=== PATIENT | male | born 1945 | race Caucasian/White ===

== ENCOUNTER 2016-06-13 16:36 | Emergency (ER) | payer MEDICARE, BC ==
--- NOTE | 2016-06-13 17:43 | ERPHSYRPT ---
- History of Present Illness Source: patient, family () Patient Subjective Stated Complaint: LEFT HIP PAIN FOR TWO MONTHS Triage Nursing Assessment: PRESENTED AT BACK DOOR. PATIENT ASSISTED TO W/C AND THEN TO COT. HOLDING LEFT HIP. SKIN WARM, MOIST. COLOR NORMAL. RESP SLIGHTLY LABORED. 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 He has pain in left flank and left lower abd for a few days , worse today. He had a fall but does not think related. He has hx of kidney stones. No fever or chills. Started O2 at home this week thru Dr Salazar. Pain was severe. He was advised by pain management he can not take any pain medication due to his pump. The pump is scheduled for refill next week. (LEIGH GLOVER) Allergies/Adverse Reactions: baclofen Allergy (Verified 06/13/16 16:47) Penicillins Allergy (Verified 06/13/16 16:47) tizanidine [From Zanaflex] Allergy (Verified 06/13/16 16:47) Home Medications: Allopurinol 300 mg [Zyloprim 300 mg] 300 mg PO DAILY 02/20/16 [History] Aspirin 81 mg PO DAILY 02/20/16 [History] Carvedilol 6.25 mg [Coreg 6.25 MG] 6.25 mg PO BID 02/20/16 [History] Celecoxib [Celebrex] 200 mg PO DAILY 02/20/16 [History] Diazepam 2 mg PO UD 02/20/16 [History] Ergocalciferol (Vitamin D2) [Vitamin D] 50,000 unit PO UD 02/20/16 [History] Gabapentin 1,200 mg PO EVENING MEAL 02/20/16 [History] Gabapentin 800 mg PO HS 02/20/16 [History] Hydrochlorothiazide 25 mg [hydroDIURIL 25 MG] 25 mg PO DAILY 02/20/16 [ History] Hydromorphone HCl 30 mg/30 ml* [Dilaudid 1 mg/1Ml FABRIC COATING SUPERVISOR] 30 mg IJ UD 02/20/16 [ History] Lisinopril 20 mg [Zestril 20 MG] 20 mg PO BID 02/20/16 [History] Potassium Chloride 10 Meq Tab* [Klor Con 10 MEQ] 10 meq PO DAILY 02/20/16 [ History] Potassium Citrate [Urocit-K] 10 meq PO BID 02/20/16 [History] Prednisone 10 mg [Deltasone 10 mg] 10 mg PO DAILY 02/20/16 [History] Risedronate Sodium [Actonel] 150 mg PO UD 02/20/16 [History] Sumatriptan Succinate [Imitrex] 100 mg PO UD 04/13/16 [History] Umeclidinium Brm/Vilanterol Tr [Anoro Ellipta 62.5-25 Mcg INH] 1 each UD [History] - Review of Systems Constitutional: Malaise, Weakness, No Fever, No Chills Eyes: No Symptoms Ears, Nose, & Throat: No Symptoms Respiratory: Dyspnea (chronic), No Cough Cardiac: No Chest Pain Abdominal/Gastrointestinal: Abdominal Pain (left), No Vomiting, No Diarrhea Genitourinary Symptoms: Hematuria (chronic), Flank Pain (left), No Dysuria Skin: No Rash Neurological: No Headache Psychological: Anxiety All Other Systems: Reviewed and Negative <LEIGH GLOVER - Last Filed: 06/13/16 19:19> - Past Medical History Pertinent Past Medical History: Yes Neurological History: Migraines, Peripheral Neuropathy ENT History: No Pertinent History Cardiac History: Hypertension Respiratory History: No Pertinent History, COPD Endocrine Medical History: No Pertinent History Musculoskeletal History: Osteoporosis GI Medical History: No Pertinent History History: No Pertinent History Psycho-Social History: Depression Male Reproductive Disorders: Prostate Problems Other Medical History: GOUT. KIDNEY STONE. 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 enlarged prostate. soledad myopathy - Past Surgical History Past Surgical History: Yes Neuro Surgical History: No Pertinent History Cardiac: No Pertinent History Respiratory: No Pertinent History Gastrointestinal: Hernia Repair Genitourinary: No Pertinent History Musculoskeletal: Orthopedic Surgery Male Surgical History: No Pertinent History Other Surgical History: PAIN PUMP. IMPLANTED TENS UNIT--THEN PAIN PUMP. BACK SURGERY. prostate surgery. skin CA benign - Social History Smoking Status: Former smoker Exposure to second hand smoke: No Drug Use: none Patient Lives Alone: No <LEIGH GLOVER - Last Filed: 06/13/16 19:19> - Physical Exam General Appearance: alert, other (arrived at back door banging on door. Was somewhat breathless on his walker. Anxiety improved in bed.) Eye Exam: PERRL/EOMI Ears, Nose, Throat Exam: moist mucous membranes Neck Exam: normal inspection, non-tender, supple Respiratory Exam: lungs clear Cardiovascular Exam: regular rate/rhythm Gastrointestinal/Abdomen Exam: soft, tenderness (left sided), No hernia Male Genitalia Exam: normal genitalia Back Exam: normal inspection, No CVA tenderness, No vertebral tenderness Extremity Exam: normal inspection, normal range of motion Neurologic Exam: alert, oriented x 3, cooperative, sensation nml, No motor deficits Skin Exam: warm, dry, No rash SpO2 Interpretation: normal SpO2: 93 Oxygen Delivery: Room Air <LEIGH GLOVER - Last Filed: 06/13/16 19:19> - Course Nursing assessment & vital signs reviewed: Yes <LEIGH GLOVER - Last Filed: 06/13/16 19:19> <LEIGH GLOVER - Last Filed: 06/13/16 19:19> - Progress Progress: improved Counseled pt/family regarding: lab results, diagnosis, need for follow-up, rad results <HUONG COURTNEY - Last Filed: 06/13/16 20:01> - Progress Progress Note: 06/13/16 18:47 CT abd/pelvis: velma 6:46 PM 06/13/2016: Additional B/L renal calculi, largest L 9mm. 06/13/16 19:13 velma 6:45 PM 06/13/2016: Compared to CT abd only 11/28/11. 3mm R mid ureteral calculus @L3 level w/ minimal hydronephrosis. Suspect 3cm R urinary bladder wall calcified mass worrisome for malignancy. New scattered small mesenteric nodes & numerous prominent retroperoteneal nodes possibly metastatic. Stable B/L renal cysts & fatty liver. velma 6:46 PM 06/13/2016: Additional B/L renal calculi, largest L 9mm. 06/13/16 19:[address] finding with pt. He used to see dr Brewer for bladder and stones but not for quite some time. Discussed possibility of bladder malignancy needing follow up. Report to Dr Courtney for further care and disposition. UA pending. (LEIGH GLOVER) 06/13/16 19:54 Patient is pain free, CT results d/w patient. Patient stats he will follow up with Dr Goodwin in 2 -3 days (HUONG COURTNEY) <LEIGH GLOVER - Last Filed: 06/13/16 19:19> - Departure Time of Disposition: 19:55 Departure Disposition: Home Critical Care Time: Yes Critical Care Time(excluding separately billable procedures): 30-74 minutes <HUONG COURTNEY - Last Filed: 06/13/16 20:01> - Departure Clinical Impression: Renal colic, bilateral, Bladder calcified Condition: Stable Referrals: DOMINIQUE GOODWIN MD [Primary Care Provider] - Followup in 3 days w/ PCP Additional Instructions: Please follow the instructions given to you. Please take your medication as prescribed if given. If symptoms recur or get worse, come back to the emergency room if you cannot reach your primary care physician, or call your primary care physician for an appointment. Again if your symptoms get worse, come back to the emergency room. Thanks for visiting emergency room, and let us take care of you.
[2016-06-13 17:48] LABS: Mean Cell Volume 102.2 fl (78-100); Mean Corpuscular Hemoglobin 33.3 pg (26-32); Mean Platelet Volume 10.2 fl (6-9.5); Platelet Count 152 K/mm3 (150-450); Red Blood Count 3.69 M/mm3 (4.1-5.6); Red Cell Distribution Width 14.5 % (11.5-14.0)
[2016-06-13 18:11] LABS: ALBUMIN 3.8 g/dL (3.4-5.0); ALKALINE PHOSPHATASE 50 U/L (46-116); ANION GAP 9.8 MEQ/L (5-15); BILIRUBIN,TOTAL 0.5 mg/dL (0.2-1.0); BLOOD UREA NITROGEN 23 mg/dL (9-20); CHLORIDE 109 mEq/L (98-107); Carbon Dioxide 31.9 mEq/L (21-32); Glucose 78 MG/DL (70-110); Potassium 4.5 mEq/L (3.5-5.1); SGOT/AST 21 U/L (15-37); SGPT/ALT 23 U/L (12-78); SODIUM 146 mEq/L (136-145); Total Protein 6.2 gm/dL (6.4-8.2)
[2016-06-13 18:48] LABS: ANISOCYTOSIS 1+; Total Cells Counted 100
[2016-06-13 18:49] LABS: Platelet Estimate NORMAL (NORMAL)
[2016-06-13 19:35] VITALS: BP 120/76; PULSE 48; O2SAT 98
[2016-06-13 19:48] LABS: Bacteria RARE /HPF (NEGATIVE); COMPLETE URINE MICROSCOPIC? YES; Collection Type CCMS; Mucus MODERATE /HPF (NEGATIVE); Ph 6.5 (5-6); WBC 25-50 /HPF (0-5)
--- NOTE | 2016-06-13 20:05 | XRAY ---
Indication: Left flank pain. Multiple contiguous axial images obtained through the abdomen and pelvis without contrast using renal stone protocol. Comparison: CT abdomen study of November 28, 2011 Lung bases again demonstrates bibasilar atelectasis/scarring and right base bleb. Heart is not enlarged. Left anterior abdominal wall pain pump and bilateral L3-L4 posterior spinal hardware produces beam artifact. There is again spinal leads terminating in the lower thoracic spine. New 3 mm calculus in the right mid ureter, approximately L3 level with minimal hydronephrosis. Additional new 9 mm nonobstructing left renal calculus and 2 punctate right renal micro-calculi. Again there are multiple bilateral renal cysts. Right urinary bladder wall demonstrates 3 cm focus of calcifications concerning for bladder mass. There is now numerous scattered small mesenteric nodes, largest right mid abdomen measuring 1.2 x 1.9 cm. There also numerous retroperitoneal abdominal and pelvic enlarged lymph nodes, largest in the right pelvis proximal to the inguinal canal measuring 1.6 x 3.1 cm. Findings worrisome for primary versus metastatic malignancy. Stable fatty liver and scattered calcified splenic granulomas. Noncontrasted stomach and bowel loops appear nonobstructed. Normal appendix. No free fluid/air. Remaining gallbladder, pancreas, and adrenal glands appear unremarkable for noncontrast exam. Minimal aortoiliac calcifications without AAA. Again tortuous/ectatic bilateral iliac arteries. Osseous structures again demonstrates degenerative changes throughout the spine and lower lumbar fusion surgery with laminectomy. Again old right lower rib fractures. Impression: 1. New 3 mm right mid ureteral calculus producing minimal partial obstruction. Additional bilateral renal micro-calculi. 2. Suspect right urinary bladder wall mass worrisome for malignancy. 3. New scattered mesenteric and abdominal/pelvic retroperitoneal lymphadenopathy, primary versus metastatic malignancy. 4. Stable bilateral renal cysts, fatty liver, and post surgical changes. CTDI 23.69
== END 2016-06-13 20:32 | disposition home or self-care (01) ==
LOC: ED 16:36
DX: N23 Unspecified renal colic (principal); N32.89 Other specified disorders of bladder; M25.552 Pain in left hip; R10.9 Unspecified abdominal pain; R10.32 Left lower quadrant pain; Z79.891 Long term (current) use of opiate analgesic; Z79.899 Other long term (current) drug therapy
CPT/HCPCS: 36000; 36415; 74176; 80053; 81000; 85025; 93005; 99283

== ENCOUNTER 2017-02-24 11:11 | Inpatient (IN) | payer MEDICARE, BC ==
--- NOTE | 2017-02-24 11:57 | ERPHSYRPT ---
- History of Present Illness Time Seen by Provider: 02/24/17 11:48 Source: patient Exam Limitations: no limitations Patient Subjective Stated Complaint: spouse states pt fever started at 0600 this morning. states he was seen by urologist yesterday is given a script for bactrim which the pt has not yet started. states pt not feeling well today. states he has had a cold and a cough for the past few days. states fever at home before tylenol was 102.0 Triage Nursing Assessment: pt pink, warm, diaphotetic. pt normally uses home o2. lung sounds clear and equal. Physician History: The patient is a 71-year-old male brought in by family complaining of fever of 102.3 this morning, confusion, tiredness, and sweating profusely. The patient has bladder tumors and was seen by his urologist yesterday. It was determined he had a UTI yesterday and was given Bactrim for treatment. His went to cotton picker operator the Bactrim this morning and when she returned, she found him again sweaty and confused. He has not had any Bactrim since the diagnosis yesterday. The patient states that he was not confused. He denies pain out of the ordinary. His past medical history is significant for desmin myopathy, kidney stones, asthma, chronic lymphocytic leukemia, and hypertension. Timing/Duration: today Fever Severity: moderate Fever Therapy STONE SETTER METAL OPTICAL FRAMES: none Associated Symptoms: denies symptoms Allergies/Adverse Reactions: baclofen Allergy (Verified 02/24/17 11:28) cyclobenzaprine [From Flexeril] Allergy (Verified 02/24/17 11:28) Penicillins Allergy (Verified 02/24/17 11:28) tizanidine [From Zanaflex] Allergy (Verified 02/24/17 11:28) Home Medications: Allopurinol 300 mg [Zyloprim 300 mg] 300 mg PO DAILY 02/20/16 [History] Aspirin 81 mg PO DAILY 02/20/16 [History] Celecoxib [Celebrex] 200 mg PO DAILY 02/20/16 [History] Diazepam 2 mg PO UD 02/20/16 [History] Ergocalciferol (Vitamin D2) [Vitamin D] 50,000 unit PO UD 02/20/16 [History] Gabapentin 1,200 mg PO EVENING MEAL 02/20/16 [History] Gabapentin 800 mg PO HS 02/20/16 [History] Hydrochlorothiazide 25 mg [hydroDIURIL 25 MG] 25 mg PO DAILY 02/20/16 [ History] Hydromorphone HCl 30 mg/30 ml* [Dilaudid 1 mg/1Ml WEB ENGINEER] 30 mg IJ UD 02/20/16 [ History] Lisinopril 20 mg [Zestril 20 MG] 20 mg PO HS 02/20/16 [History] Potassium Chloride 10 Meq Tab* [Klor Con 10 MEQ] 10 meq PO DAILY 02/20/16 [ History] Potassium Citrate [Urocit-K] 10 meq PO BID 02/20/16 [History] Prednisone 10 mg [Deltasone 10 mg] 10 mg PO DAILY 02/20/16 [History] Risedronate Sodium [Actonel] 150 mg PO UD 02/20/16 [History] Sumatriptan Succinate [Imitrex] 100 mg PO UD 04/13/16 [History] Hx Tetanus, Diphtheria Vaccination/Date Given: Yes (up to date) Hx Influenza Vaccination/Date Given: Yes Hx Pneumococcal Vaccination/Date Given: Yes Immunizations Up to Date: Yes - Review of Systems Constitutional: Fever, Weakness Eyes: No Symptoms Ears, Nose, & Throat: No Symptoms Respiratory: Dyspnea (pts is on 2 L NC for asthma) Cardiac: Edema, No Chest Pain, No Syncope Abdominal/Gastrointestinal: No Abdominal Pain, No Nausea, No Vomiting, No Diarrhea Genitourinary Symptoms: Urgency, No Dysuria Musculoskeletal: Myalgias (from Desmin myopathy) Skin: No Rash Neurological: No Dizziness, No Focal Weakness, No Sensory Changes Psychological: No Symptoms Endocrine: No Symptoms Hematologic/Lymphatic: No Symptoms Immunological/Allergic: No Symptoms All Other Systems: Reviewed and Negative - Past Medical History Pertinent Past Medical History: Yes Neurological History: Migraines, Peripheral Neuropathy ENT History: No Pertinent History Cardiac History: Hypertension Respiratory History: No Pertinent History, COPD Endocrine Medical History: No Pertinent History Musculoskeletal History: Osteoporosis GI Medical History: No Pertinent History History: No Pertinent History Psycho-Social History: Depression Male Reproductive Disorders: Prostate Problems Other Medical History: GOUT. KIDNEY STONE. 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 enlarged prostate. soledad myopathy - Past Surgical History Past Surgical History: Yes Neuro Surgical History: No Pertinent History Cardiac: No Pertinent History Respiratory: No Pertinent History Gastrointestinal: Hernia Repair Genitourinary: No Pertinent History Musculoskeletal: Orthopedic Surgery Male Surgical History: No Pertinent History Other Surgical History: PAIN PUMP. IMPLANTED TENS UNIT--THEN PAIN PUMP. BACK SURGERY. prostate surgery. skin CA benign - Social History Smoking Status: Former smoker Exposure to second hand smoke: No Drug Use: none Patient Lives Alone: No - Nursing Vital Signs Nursing Vital Signs: Initial Vital Signs Temperature 98.3 F 02/24/17 11:42 Pulse Rate 61 02/24/17 11:42 Respiratory Rate 20 02/24/17 11:42 Blood Pressure 106/59 02/24/17 11:42 O2 Sat by Pulse Oximetry 95 02/24/17 11:42 Pain Scale Pain Intensity 0 - Physical Exam General Appearance: mild distress Eye Exam: PERRL/EOMI ENT Exam: normal ENT inspection, No pharyngeal erythema, No tonsillar exudate Neck Exam: supple, full range of motion, No meningismus Respiratory Exam: wheezing Cardiovascular/Chest Exam: normal heart sounds, regular rate/rhythm, No murmur, No edema Gastrointestinal/Abdominal Exam: soft, non tender, no distention Rectal Exam: not done Extremity Exam: pedal edema Neurologic Exam: alert, oriented x 3, cooperative, protection manager II-XII nml as tested, normal mood/affect, sensation nml, No motor deficits Skin Exam: normal color, warm, dry, No rash SpO2 Interpretation: O2 applied SpO2: 95 Oxygen Delivery: Nasal Cannula - Radiology Exams Chest X-ray Interpretation: Other (right hemidiaphragm elevation and adjacent infiltrate/atelectasis unchanged comp to 02/20/[address] Calixto.) Abdomen X-ray Interpretation: Teleradiologist Report, Other (Neg KUB with left renal calculus per Dr Davies) Ordered Tests: Active Orders 24 hr Category Date Time Status IV Insertion STAT Care 02/24/17 12:15 Active Oxygen-ED Only NASAL CANNULA 2 lpm Care 02/24/17 13:18 Active CHEST 2 VIEWS (PA AND LAT) Stat Exams 02/24/17 12:16 Completed KUB Stat Exams 02/24/17 12:16 Completed BLOOD CULTURE Stat Lab 02/24/17 13:00 Received CBC W DIFF Stat Lab 02/24/17 11:45 Completed CMP Stat Lab 02/24/17 11:45 Completed CULTURE,URINE Stat Lab 02/24/17 11:45 Received Lactic Acid Stat Lab 02/24/17 12:30 Results Manual Differential NC Stat Lab 02/24/17 11:45 Completed NT PRO BNP Stat Lab 02/24/17 11:45 Completed UA W/ MICROSCOPIC Stat Lab 02/24/17 11:45 Completed Medication Summary Generic Name Dose Route Start Last Admin Trade Name Frannie PRN Reason Stop Dose Admin Ceftriaxone Sodium/Dextrose 1 g in 50 mls @ 100 mls/hr 02/24/17 13:56 Rocephin 1 Gm-D5w 50 Ml Bag IV 02/24/17 14:25 STAT STA Lab/Rad Data: Laboratory Result Diagrams 02/24/17 11:45 02/24/17 11:45 Laboratory Results 02/24/17 02/24/17 02/24/17 Range/Units 12:30 11:45 11:45 WBC (4.0-10.5) K/mm3 RBC (4.1-5.6) M/mm3 Hgb (12.5-18.0) gm/dl Hct (42-50) % MCV (78-100) fl MCH (26-32) pg MCHC (32-36) g/dl RDW (11.5-14.0) % Plt Count (150-450) K/mm3 MPV (6-9.5) fl Segmented Neutrophils (36.-66.) % Band Neutrophils (0.0-2.0) % Lymphocytes (Manual) (24-44) % Monocytes (Manual) (0.0-12.0) % Basophils (Manual) (0.0-1.0) % Nucleated RBCs % Differential Comment Atypical Lymphocytes % Platelet Estimate (NORMAL) Smear Path Review Sodium (136-145) mEq/L Potassium (3.5-5.1) mEq/L Chloride (98-107) mEq/L Carbon Dioxide (21-32) mEq/L Anion Gap (5-15) MEQ/L BUN (9-20) mg/dL Creatinine (0.55-1.30) mg/dl Estimated GFR ML/MIN Glucose (70-110) MG/DL Lactic Acid 3.4 H (0.4-2.0) Calcium (8.5-10.1) mg/dL Total Bilirubin (0.2-1.0) mg/dL AST (15-37) U/L ALT (12-78) U/L Alkaline Phosphatase (46-116) U/L NT-Pro-B Natriuret Pep 2039 H (0-125) pg/ml Serum Total Protein (6.4-8.2) gm/dL Albumin (3.4-5.0) g/dL Ur Collection Type VOID Urine Color YELLOW (YELLOW) Urine Appearance CLOUDY (CLEAR) Urine pH 5.0 (5-6) Ur Specific [place] 1.020 (1.005-1.025) Urine Protein TRACE (Negative) Urine Ketones NEGATIVE (NEGATIVE) Urine Blood 250 (0-5) Thomas/ul Urine Nitrite POSITIVE (NEGATIVE) Urine Bilirubin NEGATIVE (NEGATIVE) Urine Urobilinogen NORMAL (0-1) mg/dL Ur Leukocyte Esterase 2+ (NEGATIVE) Urine Microscopic RBC 0-2 (0-2) /HPF Urine Microscopic WBC >100 (0-5) /HPF Ur Epithelial Cells FEW (FEW) /HPF Urine Bacteria MANY (NEGATIVE) /HPF Urine Glucose NEGATIVE (NEGATIVE) mg/dL Specimen Received 02/24/17 1150 02/24/17 02/24/17 Range/Units 11:45 11:45 WBC 46.5 H* (4.0-10.5) K/mm3 RBC 3.77 L (4.1-5.6) M/mm3 Hgb 12.4 L (12.5-18.0) gm/dl Hct 40.3 L (42-50) % MCV 106.9 H (78-100) fl MCH 32.8 H (26-32) pg MCHC 30.8 L (32-36) g/dl RDW 16.0 H (11.5-14.0) % Plt Count 113 L (150-450) K/mm3 MPV 9.8 H (6-9.5) fl Segmented Neutrophils 18 L (36.-66.) % Band Neutrophils 1 (0.0-2.0) % Lymphocytes (Manual) 77 H (24-44) % Monocytes (Manual) 2 (0.0-12.0) % Basophils (Manual) 1 (0.0-1.0) % Nucleated RBCs 1 % Differential Comment NORMAL Atypical Lymphocytes 1 % Platelet Estimate DECREASED (NORMAL) Smear Path Review Cancelled Sodium 147 H (136-145) mEq/L Potassium 4.2 (3.5-5.1) mEq/L Chloride 108 H (98-107) mEq/L Carbon Dioxide 29.4 (21-32) mEq/L Anion Gap 13.9 (5-15) MEQ/L BUN 26 H (9-20) mg/dL Creatinine 1.28 (0.55-1.30) mg/dl Estimated GFR 59 ML/MIN Glucose 110 (70-110) MG/DL Lactic Acid (0.4-2.0) Calcium 9.0 (8.5-10.1) mg/dL Total Bilirubin 0.90 (0.2-1.0) mg/dL AST 29 (15-37) U/L ALT 27 (12-78) U/L Alkaline Phosphatase 58 (46-116) U/L NT-Pro-B Natriuret Pep (0-125) pg/ml Serum Total Protein 5.9 L (6.4-8.2) gm/dL Albumin 3.8 (3.4-5.0) g/dL Ur Collection Type Urine Color (YELLOW) Urine Appearance (CLEAR) Urine pH (5-6) Ur Specific [place] (1.005-1.025) Urine Protein (Negative) Urine Ketones (NEGATIVE) Urine Blood (0-5) Thomas/ul Urine Nitrite (NEGATIVE) Urine Bilirubin (NEGATIVE) Urine Urobilinogen (0-1) mg/dL Ur Leukocyte Esterase (NEGATIVE) Urine Microscopic RBC (0-2) /HPF Urine Microscopic WBC (0-5) /HPF Ur Epithelial Cells (FEW) /HPF Urine Bacteria (NEGATIVE) /HPF Urine Glucose (NEGATIVE) mg/dL Specimen Received - Progress Progress: unchanged Discussed with : María Will see patient in: hospital (full admit) Counseled pt/family regarding: lab results, diagnosis, rad results - Departure Time of Disposition: 14:04 Departure Disposition: In-patient Admission Clinical Impression: Sepsis, UTI (urinary tract infection) Condition: Stable Critical Care Time: No Referrals: DOMINIQUE TORRES MD [Primary Care Provider] - Additional Instructions: You have a UTI with a fever. You were given Rocephin 1 g by IV in the ER. You' re being admitted per Dr. Kaplan for treatment.
[2017-02-24 12:27] LABS: Mean Cell Volume 106.9 fl (78-100); Mean Platelet Volume 9.8 fl (6-9.5); Platelet Count 113 K/mm3 (150-450); Red Blood Count 3.77 M/mm3 (4.1-5.6)
[2017-02-24 12:30] LABS: ADD URINE CULTURE? YES (NO); Bilirubin NEGATIVE (NEGATIVE); Blood 250 Ery/ul (0-5); COMPLETE URINE MICROSCOPIC? YES; Collection Type VOID; Glucose NEGATIVE (NEGATIVE); Leukocyte Esterase 2+ (NEGATIVE)
[2017-02-24 12:31] LABS: Lactic Acid 3.4 (0.4-2.0)
[2017-02-24 12:35] LABS: ALBUMIN 3.8 g/dL (3.4-5.0); ANION GAP 13.9 MEQ/L (5-15); BILIRUBIN,TOTAL 0.9 mg/dL (0.2-1.0); Carbon Dioxide 29.4 mEq/L (21-32); Potassium 4.2 mEq/L (3.5-5.1); Total Protein 5.9 gm/dL (6.4-8.2)
[2017-02-24 12:38] LABS: Mean Corpuscular Hemoglobin 32.8 pg (26-32); White Blood Count 46.5 K/mm3 (4.0-10.5)
--- NOTE | 2017-02-24 12:59 | XRAY ---
Indication: Fever, dizziness, and UTI. Comparison: February 20, 2016. AP/lateral chest unchanged again demonstrating right hemidiaphragm elevation with adjacent infiltrate/atelectasis. Left lung clear. Heart is borderline enlarged. Bony thorax intact again with osteopenia, degenerative changes, and lower thoracic spinal stimulator leads.
--- NOTE | 2017-02-24 13:03 | XRAY ---
Indication: Fever, dizziness, and UTI. Comparison: None KUB demonstrates nonspecific nonobstructed bowel gas pattern with left mid renal subcentimeter calculus. No free air. Remaining solid organs unremarkable. Osseous structures intact with lumbar degenerative changes, L4-L5 fusion surgery, and disconnected spinal stimulator leads terminating at the T10 level. Also left abdomen pain pump. Impression: Left renal calculus similar in appearance to CT abdomen/pelvis study July 17, 2016. Remaining KUB is negative with incidental findings.
[2017-02-24 13:17] LABS: ATYPICAL LYMPHS 1 %; BAND 1 % (0.0-2.0); Basophil 1 % (0.0-1.0); Nucleated Red Blood Cell 1 %; Platelet Estimate DECREASED (NORMAL); Total Cells Counted 100
[2017-02-24 13:51] LABS: Bacteria MANY /HPF (NEGATIVE); Epithelial Cells FEW /HPF (FEW); WBC >100 /HPF (0-5)
[2017-02-24] MEDS ORDERED: ROCEPHIN 1 Gm-D5w 50 ml Bag** 1 G/50 ML IVPB IV STA (13:56)
[2017-02-24] MEDS ORDERED: Sodium Chloride 0.9% 1000 ML 2,000 ML ONE (14:05)
[2017-02-24] MEDS ORDERED: ROCEPHIN 1 Gm-D5w 50 ml Bag** 1 G/50 ML IVPB IV ONE (14:05)
[2017-02-24] MEDS ORDERED: Zofran 4 MG/2 ML VIAL IV PRN (15:10)
[2017-02-24] MEDS: TYLENOL 325 MG PO PRN (15:43)
[2017-02-24] MEDS: Sodium Chloride 0.9% 1000 ML 1,000 ML IV SCH (15:44)
[2017-02-24] MEDS ORDERED: NON-FORMULARY ITEM (Sumatriptan Succinate [Imitrex] 100 MG) PO SCH (16:45)
[2017-02-24] MEDS ORDERED: MEDICATION INTERVENTION MC PRN (16:58)
[2017-02-24] MEDS ORDERED: GABAPENTIN 1200 MG PO SCH (18:00)
[2017-02-24] MEDS: Neurontin 400 MG PO SCH ×2 (18:48→22:09)
[2017-02-24] MEDS: Valium 5 MG PO SCH (18:48)
[2017-02-24] MEDS ORDERED: NON-FORMULARY ITEM (Gabapentin [Gabapentin] 800 MG) PO SCH (22:00)
[2017-02-24] MEDS ORDERED: POTASSIUM CITRATE 10 MEQ PO SCH (22:00)
[2017-02-24] MEDS: Zestril 20 MG PO SCH (22:09)
[2017-02-25] MEDS: Sodium Chloride 0.9% 1000 ML 1,000 ML IV SCH ×3 (01:58→22:28)
[2017-02-25 05:58] LABS: Mean Cell Volume 107.6 fl (78-100); Mean Platelet Volume 9.5 fl (6-9.5); Platelet Count 76 K/mm3 (150-450); Red Blood Count 3.15 M/mm3 (4.1-5.6); White Blood Count 20.1 K/mm3 (4.0-10.5)
[2017-02-25 06:08] LABS: ANION GAP 7.3 MEQ/L (5-15); BLOOD UREA NITROGEN 27 mg/dL (9-20); CHLORIDE 111 mEq/L (98-107); Carbon Dioxide 31.6 mEq/L (21-32); Glucose 92 MG/DL (70-110); Potassium 3.4 mEq/L (3.5-5.1); SODIUM 147 mEq/L (136-145)
[2017-02-25 08:03] LABS: BAND 6 % (0.0-2.0); Eosinophil 1 % (0.00-3.0); Nucleated Red Blood Cell 1 %; Platelet Estimate DECREASED (NORMAL); Total Cells Counted 100
--- NOTE | 2017-02-25 08:41 | PCM.HP ---
History of Present Illness - Chief Complaint Chief Complaint: uti History of Present Illness: is a 71 year old male who was admitted yesterday, he developed fever, chills and confusion. He apparently was seen by Dr Sosa and diagnosed with UTI but hadn't started the script for antibiotic before becoming very ill. He has known bladder tumors and abdominal adenopathy and is seeing hem/onc. 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 - Review of Systems Constitutional: Fever, Chills Respiratory: No Cough, No Short Of Breath Cardiac: No Chest Pain, No Edema, No Syncope Abdominal/Gastrointestinal: No Abdominal Pain, No Nausea, No Vomiting, No Diarrhea Genitourinary Symptoms: Frequency, Hesitancy Skin: No Rash All Other Systems: Reviewed and Negative Medications & Allergies Home Medications: Home Medication List Allopurinol 300 mg [Zyloprim 300 mg] 300 mg PO DAILY 02/20/16 [History Confirmed 02/24/17] Aspirin 81 mg PO DAILY 02/20/16 [History Confirmed 02/24/17] Celecoxib [Celebrex] 200 mg PO DAILY 02/20/16 [History Confirmed 02/24/17] Ergocalciferol (Vitamin D2) [Vitamin D] 50,000 unit PO UD 02/20/16 [History Confirmed 02/24/17] Gabapentin 1,200 mg PO EVENING MEAL 02/20/16 [History Confirmed 02/24/17] Gabapentin 800 mg PO HS 02/20/16 [History Confirmed 02/24/17] Hydrochlorothiazide 25 mg [hydroDIURIL 25 MG] 25 mg PO DAILY 02/20/16 [ History Confirmed 02/24/17] Hydromorphone HCl 30 mg/30 ml* [Dilaudid 1 mg/1Ml TECHNOLOGY SALES REPRESENTATIVE] 30 mg IJ UD 02/20/16 [ History Confirmed 02/24/17] Lisinopril 20 mg [Zestril 20 MG] 20 mg PO HS 02/20/16 [History Confirmed 06/13/16] Potassium Chloride 10 Meq Tab* [Klor Con 10 MEQ] 10 meq PO DAILY 02/20/16 [ History Confirmed 02/24/17] Potassium Citrate [Urocit-K] 10 meq PO BID 02/20/16 [History Confirmed 02/24/17] Prednisone 10 mg [Deltasone 10 mg] 10 mg PO DAILY 02/20/16 [History Confirmed 02/24/17] Risedronate Sodium [Actonel] 150 mg PO UD 02/20/16 [History Confirmed 02/24/17] Sumatriptan Succinate [Imitrex] 100 mg PO UD 04/13/16 [History Confirmed ] Desvenlafaxine Succinate [Pristiq ER] 50 mg PO DAILY 02/24/17 [History Confirmed 02/24/17] Diazepam 5 mg [Valium 5 MG] 2.5 mg PO 18 02/24/17 [History Confirmed 02/24] Allergies/Adverse Reactions: Allergies Allergy/AdvReac Type Severity Reaction Status Date / Time baclofen Allergy Verified 02/24/17 11:28 cyclobenzaprine Allergy Verified 02/24/17 11:28 [From Flexeril] Penicillins Allergy Verified 02/24/17 11:28 tizanidine [From Zanaflex] Allergy Verified 02/24/17 11:28 - Past Medical History Past Medical History: Yes Neurological History: Migraines, Peripheral Neuropathy ENT History: No Pertinent History Cardiac History: Hypertension Respiratory History: No Pertinent History, COPD Endocrine Medical History: No Pertinent History Musculoskelatal History: Osteoporosis GI Medical History: No Pertinent History History: No Pertinent History Pyscho-Social History: Depression Male Reproductive Disorders: Prostate Problems Comment: GOUT. KIDNEY STONE. 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 enlarged prostate. soledad myopathy - Past Surgical History Past Surgical History: Yes Neuro Surgical History: No Pertinent History Cardiac History: No Pertinent History Respiratory Surgery: No Pertinent History GI Surgical History: Hernia Repair Genitourinary Surgical Hx: No Pertinent History Musculskeletal Surgical Hx: Orthopedic Surgery Male Surgical History: No Pertinent History Other Surgical History: PAIN PUMP. IMPLANTED TENS UNIT--THEN PAIN PUMP. BACK SURGERY. prostate surgery. skin CA benign - Social History Smoking Status: Never smoker Exposure to second hand smoke: No Alcohol: None Drug Use: none - Physical Exam Vital Signs: Vital Signs - 24 hr Temp Pulse Resp BP Pulse Ox 02/25/17 07:17 97.7 F 56 L 22 119/60 96 02/25/17 07:08 94 L 02/25/17 04:30 98.1 F 45 L 20 104/60 95 02/25/17 00:00 97.7 F 50 L 18 127/67 96 02/24/17 20:00 97.9 F 52 L 20 110/58 94 L 02/24/17 16:44 52 L 16 94 L 02/24/17 15:40 98.3 F 56 L 114/59 95 02/24/17 15:10 98.3 F 56 L 114/59 02/24/17 14:40 98.3 F 60 105/61 95 02/24/17 14:33 98.2 F 56 L 18 114/59 93 L 02/24/17 14:15 68 22 105/61 02/24/17 14:12 95 02/24/17 13:40 60 18 105/61 94 L 02/24/17 12:50 58 L 16 93/49 94 L 02/24/17 12:24 62 18 79/48 95 02/24/17 11:42 98.3 F 61 20 106/59 95 Oxygen-Last 24 hours O2 Percentage 2 Liters = 28% O2 Percentage 2 Liters = 28% O2 Percentage 2 Liters = 28% O2 Percentage 2 Liters = 28% O2 Percentage 2 Liters = 28% O2 Percentage 2 Liters = 28% O2 Percentage 2 Liters = 28% O2 Percentage 2 Liters = 28% O2 Percentage 2 Liters = 28% O2 Percentage 2 Liters = 28% General Appearance: no apparent distress, alert Neurologic Exam: alert, oriented x 3, cooperative Respiratory Exam: normal breath sounds, lungs clear, No respiratory distress Cardiovascular Exam: regular rate/rhythm, normal heart sounds, normal peripheral pulses Gastrointestinal/Abdomen Exam: soft, normal bowel sounds, No tenderness, No mass Skin Exam: normal color, warm, dry, No rash Results - Labs Lab/Micro Results: Accuchecks Date 02/24/17 Time 22:00 Accucheck Value: 146 Lab Results-Last 24 Hours 02/24/17 02/25/17 02/25/17 Range/Units 15:10 05:12 05:12 WBC 20.1 H (4.0-10.5) K/mm3 RBC 3.15 L (4.1-5.6) M/mm3 Hgb 10.4 L (12.5-18.0) gm/dl Hct 33.9 L (42-50) % MCV 107.6 H (78-100) fl MCH 33.0 H (26-32) pg MCHC 30.7 L (32-36) g/dl RDW 16.0 H (11.5-14.0) % Plt Count 76 L (150-450) K/mm3 MPV 9.5 (6-9.5) fl Segmented Neutrophils 18 L (36.-66.) % Band Neutrophils 6 H (0.0-2.0) % Lymphocytes (Manual) 71 H (24-44) % Monocytes (Manual) 4 (0.0-12.0) % Eosinophils (Manual) 1 (0.00-3.0) % Nucleated RBCs 1 % Differential Comment NORMAL Platelet Estimate DECREASED (NORMAL) Sodium 147 H (136-145) mEq/L Potassium 3.4 L (3.5-5.1) mEq/L Chloride 111 H (98-107) mEq/L Carbon Dioxide 31.6 (21-32) mEq/L Anion Gap 7.3 (5-15) MEQ/L BUN 27 H (9-20) mg/dL Creatinine 0.82 (0.55-1.30) mg/dl Estimated GFR > 60 ML/MIN Glucose 92 (70-110) MG/DL Lactic Acid 1.6 (0.4-2.0) Calcium 8.3 L (8.5-10.1) mg/dL Accuchecks Date 02/24/17 Time 22:00 Accucheck Value: 146 Assessment/Plan (1) Sepsis Current Visit: Yes Status: Acute (2) UTI (urinary tract infection) Current Visit: Yes Status: Acute Code(s): N39.0 - URINARY TRACT INFECTION, SITE NOT SPECIFIED (3) Desmin myopathy Current Visit: No Status: Acute Code(s): G72.89 - OTHER SPECIFIED MYOPATHIES
[2017-02-25] MEDS ORDERED: NON-FORMULARY ITEM (Celecoxib [Celebrex] 200 MG) PO SCH (10:00)
[2017-02-25] MEDS ORDERED: NON-FORMULARY ITEM (Aspirin [Aspirin] 81 MG) PO SCH (10:00)
[2017-02-25] MEDS: PRISTIQ ER PO SCH (10:20)
[2017-02-25] MEDS: DELTASONE 10 MG PO SCH (10:21)
[2017-02-25] MEDS: Klor Con 10 MEQ PO SCH (10:21)
[2017-02-25] MEDS: celeBREX 100 MG PO SCH (10:21)
[2017-02-25] MEDS: ECOTRIN 81 MG PO SCH (10:21)
[2017-02-25] MEDS: ZYLOPRIM 300 MG PO SCH (10:22)
[2017-02-25] MEDS: ENOXAPARIN SODIUM SQ SCH (10:22)
[2017-02-25] MEDS: ROCEPHIN 1 Gm-D5w 50 ml Bag** 1 G/50 ML IVPB IV SCH (10:23)
[2017-02-25] MEDS: TYLENOL 325 MG PO PRN (10:38)
[2017-02-25] MEDS: Neurontin 400 MG PO SCH ×2 (17:15→21:41)
[2017-02-25] MEDS: Valium 5 MG PO SCH (17:16)
[2017-02-25] MEDS: Zestril 20 MG PO SCH (21:41)
[2017-02-25] MEDS ORDERED: Valium 5 MG PO SCH (22:00)
[2017-02-26 05:48] LABS: Mean Cell Volume 108.3 fl (78-100); Mean Corpuscular Hemoglobin 33.5 pg (26-32); Platelet Count 77 K/mm3 (150-450); Red Blood Count 3.13 M/mm3 (4.1-5.6); Red Cell Distribution Width 15.7 % (11.5-14.0); White Blood Count 19.3 K/mm3 (4.0-10.5)
[2017-02-26 06:20] LABS: ALBUMIN 2.9 g/dL (3.4-5.0); ALKALINE PHOSPHATASE 40 U/L (46-116); ANION GAP 6.9 MEQ/L (5-15); BLOOD UREA NITROGEN 22 mg/dL (9-20); CHLORIDE 110 mEq/L (98-107); Carbon Dioxide 32.8 mEq/L (21-32); Glucose 88 MG/DL (70-110); SGOT/AST 20 U/L (15-37); SGPT/ALT 24 U/L (12-78); SODIUM 146 mEq/L (136-145); Total Protein 5.2 gm/dL (6.4-8.2)
[2017-02-26 07:09] LABS: Eosinophil 2 % (0.00-3.0); Total Cells Counted 100
[2017-02-26 07:12] LABS: Macrocytosis 1+; Platelet Estimate DECREASED (NORMAL)
--- NOTE | 2017-02-26 07:55 | PCM.NOTE ---
Date and Time: 02/26/17 0753 Subjective Assessment: patient reports he is feeling better. he is able to ambulate to the restroom with his walker, tolerating po intake and feels back to his baseline as far as strength and functional status. he feels ready to go home Objective Exam General Appearance: no apparent distress Neurologic Exam: alert, oriented x 3 Skin Exam: normal color, warm, dry Cardiovascular Exam: regular rate/rhythm, normal heart sounds Gastrointestinal/Abdomen Exam: soft, No tenderness, No mass Extremity Exam: normal inspection, normal range of motion OBJECTIVE DATA Vital Signs: Vital Signs - 24 hr Temp Pulse Resp BP Pulse Ox 02/26/17 07:27 97.6 F 52 L 18 162/70 97 02/26/17 06:40 94 L 02/26/17 04:00 97.7 F 78 16 136/64 96 02/25/17 23:32 97.9 F 54 L 18 122/61 98 02/25/17 20:00 97.6 F 51 L 20 119/57 97 02/25/17 19:11 95 02/25/17 16:04 97.8 F 56 L 20 133/72 96 02/25/17 12:56 98 F 55 L 20 127/57 97 Oxygen-Last 24 hours O2 Percentage 2 Liters = 28% O2 Percentage 2 Liters = 28% O2 Percentage 2 Liters = 28% O2 Percentage 2 Liters = 28% Pain Assessment - Last Documented Pain Intensity 0 Pain Scale Used 0-10 Pain Scale Intake and Output: Intake & Output 02/23/17 02/24/17 02/25/17 02/26/17 11:59 11:59 11:59 11:59 Intake Total 3870 3780 Balance 3870 3780 Weight 107.955 kg 114.078 kg Lab Results: Accuchecks Date 02/26/17 Accucheck Value: 92 Lab Results-Last 24 Hours 02/25/17 02/26/17 02/26/17 Range/Units 05:12 05:20 05:20 WBC 19.3 H (4.0-10.5) K/mm3 RBC 3.13 L (4.1-5.6) M/mm3 Hgb 10.5 L (12.5-18.0) gm/dl Hct 33.9 L (42-50) % MCV 108.3 H (78-100) fl MCH 33.5 H (26-32) pg MCHC 31.0 L (32-36) g/dl RDW 15.7 H (11.5-14.0) % Plt Count 77 L (150-450) K/mm3 Segmented Neutrophils 18 L 19 L (36.-66.) % Band Neutrophils 6 H (0.0-2.0) % Lymphocytes (Manual) 71 H 73 H (24-44) % Monocytes (Manual) 4 6 (0.0-12.0) % Eosinophils (Manual) 1 2 (0.00-3.0) % Nucleated RBCs 1 % Differential Comment NORMAL ABNORMAL Platelet Estimate DECREASED DECREASED (NORMAL) Macrocytosis 1+ Sodium 146 H (136-145) mEq/L Potassium 4.0 (3.5-5.1) mEq/L Chloride 110 H (98-107) mEq/L Carbon Dioxide 32.8 H (21-32) mEq/L Anion Gap 6.9 (5-15) MEQ/L BUN 22 H (9-20) mg/dL Creatinine 0.79 (0.55-1.30) mg/dl Estimated GFR > 60 ML/MIN Glucose 88 (70-110) MG/DL Calcium 8.3 L (8.5-10.1) mg/dL Total Bilirubin 0.30 (0.2-1.0) mg/dL AST 20 (15-37) U/L ALT 24 (12-78) U/L Alkaline Phosphatase 40 L (46-116) U/L Serum Total Protein 5.2 L (6.4-8.2) gm/dL Albumin 2.9 L (3.4-5.0) g/dL Multi-Disciplinary Progress Notes: Multi-Disciplinary Progress Notes 02/26/17 07:19 Pharmacy Note by Gurpreet Robles Patient has low platelets of 77. Please review if Lovenox therapy still needed. Initialized on 02/26/17 07:19 - END OF NOTE 02/25/17 19:13 Respiratory Note by Jordyn Luciano NURSE CALLED TO LET ME KNOW THE PT WEARS CPAP AT NIGHT. I TALKED WITH THE PT ABOUT WEARING CPAP TONIGHT. HE REFUSES THE CPAP DUE TO NOT WANTING TO BE BILLED FOR IT. PT STATES IF HES HERE ANY NIGHT HE'LL HAVE FAMILY BRING HIS IN. PT WILL CALL IF HE CHANGES HIS MIND. Initialized on 02/25/17 19:13 - END OF NOTE Assessment/Plan (1) Sepsis Current Visit: Yes Status: Acute (2) UTI (urinary tract infection) Current Visit: Yes Status: Acute Assessment & Plan: will d/c home on oral abx when urine culture results return Code(s): N39.0 - URINARY TRACT INFECTION, SITE NOT SPECIFIED (3) Desmin myopathy Current Visit: No Status: Resolved Code(s): G72.89 - OTHER SPECIFIED MYOPATHIES
[2017-02-26] MEDS: Sodium Chloride 0.9% 1000 ML 1,000 ML IV SCH (08:21)
[2017-02-26] MEDS: celeBREX 100 MG PO SCH (08:23)
[2017-02-26] MEDS: Klor Con 10 MEQ PO SCH (08:23)
[2017-02-26] MEDS: ZYLOPRIM 300 MG PO SCH (08:23)
[2017-02-26] MEDS: PRISTIQ ER PO SCH (08:24)
[2017-02-26] MEDS: DELTASONE 10 MG PO SCH (08:24)
[2017-02-26] MEDS: ECOTRIN 81 MG PO SCH (08:24)
[2017-02-26] MEDS: ENOXAPARIN SODIUM SQ SCH (08:24)
[2017-02-26] MEDS: ROCEPHIN 1 Gm-D5w 50 ml Bag** 1 G/50 ML IVPB IV SCH (08:25)
--- NOTE | 2017-02-26 11:09 | PCM.DS ---
Discharge Summary Date of Admission: 02/24/17 14:27 Admitting Physician: MAXIMINO STEVE Consults: Consults on Case 02/24/17 15:24 Tele-Health Consult ROUTINE 02/24/17 16:29 Tele-Health Consult Primary Care Provider: DOMINIQUE TORRES RICCO Allergies Allergies baclofen Allergy (Verified 02/24/17 11:28) cyclobenzaprine [From Flexeril] Allergy (Verified 02/24/17 11:28) Penicillins Allergy (Verified 02/24/17 11:28) tizanidine [From Zanaflex] Allergy (Verified 02/24/17 11:28) Hospital Summary - Hospital Course Hospital Course: patient was admitted with weakness, fever, high white blood cell count. 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 he was found to have UTI, has improved. white blood cell count has improved and he has been afebrile - Vitals & Intake/Output Vital Signs: Vital Signs Temperature 97.6 F 02/26/17 07:27 Pulse Rate 52 L 02/26/17 07:27 Respiratory Rate 18 02/26/17 07:27 Blood Pressure 162/70 02/26/17 07:27 O2 Sat by Pulse Oximetry 97 02/26/17 07:27 Oxygen-Last Documented O2 Percentage 2 Liters = 28% Intake & Output: Intake & Output 02/23/17 02/24/17 02/25/17 02/26/17 11:59 11:59 11:59 11:59 Intake Total 3870 4020 Balance 3870 4020 Weight 107.955 kg 114.078 kg - Lab Result Diagrams: 02/26/17 05:20 02/26/17 05:20 Lab Results-Last 24 Hrs: Accuchecks Date 02/26/17 Lab Results-Last 24 Hours 02/26/17 02/26/17 Range/Units 05:20 05:20 WBC 19.3 H (4.0-10.5) K/mm3 RBC 3.13 L (4.1-5.6) M/mm3 Hgb 10.5 L (12.5-18.0) gm/dl Hct 33.9 L (42-50) % MCV 108.3 H (78-100) fl MCH 33.5 H (26-32) pg MCHC 31.0 L (32-36) g/dl RDW 15.7 H (11.5-14.0) % Plt Count 77 L (150-450) K/mm3 Segmented Neutrophils 19 L (36.-66.) % Lymphocytes (Manual) 73 H (24-44) % Monocytes (Manual) 6 (0.0-12.0) % Eosinophils (Manual) 2 (0.00-3.0) % Differential Comment ABNORMAL Platelet Estimate DECREASED (NORMAL) Macrocytosis 1+ Sodium 146 H (136-145) mEq/L Potassium 4.0 (3.5-5.1) mEq/L Chloride 110 H (98-107) mEq/L Carbon Dioxide 32.8 H (21-32) mEq/L Anion Gap 6.9 (5-15) MEQ/L BUN 22 H (9-20) mg/dL Creatinine 0.79 (0.55-1.30) mg/dl Estimated GFR > 60 ML/MIN Glucose 88 (70-110) MG/DL Calcium 8.3 L (8.5-10.1) mg/dL Total Bilirubin 0.30 (0.2-1.0) mg/dL AST 20 (15-37) U/L ALT 24 (12-78) U/L Alkaline Phosphatase 40 L (46-116) U/L Serum Total Protein 5.2 L (6.4-8.2) gm/dL Albumin 2.9 L (3.4-5.0) g/dL Micro Results-Entire Visit: Accuchecks Date 02/26/17 Discharge Exam General Appearance: no apparent distress, alert Neurologic Exam: alert, oriented x 3, cooperative, normal mood/affect, nml cerebellar function, sensation nml, No motor deficits Skin Exam: normal color, warm, dry Respiratory Exam: normal breath sounds, lungs clear, No respiratory distress Cardiovascular Exam: regular rate/rhythm, normal heart sounds Gastrointestinal/Abdomen Exam: soft, No tenderness, No mass Final Diagnosis/Problem List - Final Discharge Diagnosis/Problem (1) Sepsis Current Visit: Yes Status: Acute (2) UTI (urinary tract infection) Current Visit: Yes Status: Acute Assessment & Plan: urine culture reviewed, home on cipro (3) Desmin myopathy Current Visit: No Status: Resolved - Discharge Disposition: Home, Self-Care Condition: Stable Prescriptions: New Ciprofloxacin [Cipro 500 MG] 500 mg PO BID #14 tablet Continue Risedronate Sodium [Actonel] 150 mg PO UD Ergocalciferol (Vitamin D2) [Vitamin D] 50,000 unit PO UD Prednisone 10 mg [Deltasone 10 mg] 10 mg PO DAILY Potassium Citrate [Urocit-K] 10 meq PO BID Gabapentin 800 mg PO HS Gabapentin 1,200 mg PO EVENING MEAL Celecoxib [Celebrex] 200 mg PO DAILY Aspirin 81 mg PO DAILY Potassium Chloride 10 Meq Tab* [Klor Con 10 MEQ] 10 meq PO DAILY Lisinopril 20 mg [Zestril 20 MG] 20 mg PO HS Hydrochlorothiazide 25 mg [hydroDIURIL 25 MG] 25 mg PO DAILY Allopurinol 300 mg [Zyloprim 300 mg] 300 mg PO DAILY Hydromorphone HCl 30 mg/30 ml* [Dilaudid 1 mg/1Ml PULLEY MAN] 30 mg IJ UD Sumatriptan Succinate [Imitrex] 100 mg PO UD Desvenlafaxine Succinate [Pristiq ER] 50 mg PO DAILY Diazepam 5 mg [Valium 5 MG] 2.5 mg PO 18 Follow up with: DOMINIQUE TORRES MD [Primary Care Provider] - Forms: Patient Portal Information
[2017-02-26 11:30] VITALS: BP 141/72; PULSE 49; O2SAT 93
== END 2017-02-26 13:30 | disposition home or self-care (01) | DRG 872 ==
LOC: ED 11:11 → MED SURG 14:27
PROVIDERS: ADMIT Family Medicine; ATTEND Family Medicine
DX: A41.9 Sepsis, unspecified organism (principal); N39.0 Urinary tract infection, site not specified; C91.10 Chronic lymphocytic leukemia of B-cell type not having achieved remission; G72.89 Other specified myopathies; D49.4 Neoplasm of unspecified behavior of bladder; R59.9 Enlarged lymph nodes, unspecified; Z79.899 Other long term (current) drug therapy
CPT/HCPCS: 36000; 36415; 71020; 74000; 80048; 80053; 81000; 82962; 83605; 83880; 85025; 87040; 87077; 87086; 87186; 94760; 99285; J0696; J1650; A9270-GY; J7506

== ENCOUNTER 2017-06-28 13:13 | Inpatient (IN) | payer MEDICARE, BC ==
[2017-06-28] MEDS ORDERED: Pepcid 20 MG VIAL IV ONE ×2 (13:35→13:50)
--- NOTE | 2017-06-28 13:42 | ERPHSYRPT ---
- History of Present Illness Time Seen by Provider: 06/28/17 13:28 Historian: patient, family () Patient Subjective Stated Complaint: co abd pain for 3 days getting worse, nausea no vomiting, has normal bm today. Triage Nursing Assessment: pt alert, resp easy, skin w/d/p, pt has implanted pain pump to left side of abd, abd is distended and tight which is normal for him Physician History: CC: abd pain Hx: 71 y/o patient of Dr Torres with 3 day hx of abd pain. Took some laxative and MOM thinking it might help. If anything stools looser than usual. He had UA done showing UTI and is on bactrim. He has hx of chronic pain syndrome and implanted pain pump. No fever or chills. Fell last week and hit his head. Timing/Duration: day(s) (3) Allergies/Adverse Reactions: baclofen Allergy (Verified 06/28/17 13:35) cyclobenzaprine [From Flexeril] Allergy (Verified 06/28/17 13:35) Penicillins Allergy (Verified 06/28/17 13:35) tizanidine [From Zanaflex] Allergy (Verified 06/28/17 13:35) Home Medications: Allopurinol 300 mg [Zyloprim 300 mg] 300 mg PO DAILY 02/20/16 [History] Aspirin 81 mg PO DAILY 02/20/16 [History] Celecoxib [Celebrex] 200 mg PO DAILY 02/20/16 [History] Gabapentin 1,200 mg PO EVENING MEAL 02/20/16 [History] Gabapentin 800 mg PO HS 02/20/16 [History] Hydrochlorothiazide 25 mg [hydroDIURIL 25 MG] 25 mg PO DAILY 02/20/16 [ History] Prednisone 10 mg [Deltasone 10 mg] 10 mg PO DAILY 02/20/16 [History] Risedronate Sodium [Actonel] 150 mg PO UD 02/20/16 [History] Sumatriptan Succinate [Imitrex] 100 mg PO UD 04/13/16 [History] Desvenlafaxine Succinate [Pristiq ER] 50 mg PO DAILY 02/24/17 [History] Diazepam 5 mg [Valium 5 MG] 2.5 mg PO 18 10/03/17 [History] Furosemide [Furosemide] 40 mg PO DAILY 06/28/17 [History] Potassium Chloride 10 Meq Tab* [Klor Con 10 MEQ] 10 meq PO DAILY 06/28/17 [ History] Hx Tetanus, Diphtheria Vaccination/Date Given: Yes (up to date) Hx Influenza Vaccination/Date Given: Yes Hx Pneumococcal Vaccination/Date Given: Yes Immunizations Up to Date: Yes - Review of Systems Constitutional: Fatigue, Malaise, No Fever, No Chills Eyes: No Symptoms Ears, Nose, & Throat: No Symptoms Respiratory: No Cough, No Dyspnea Cardiac: No Chest Pain Abdominal/Gastrointestinal: Abdominal Pain, No Nausea, No Vomiting, No Diarrhea Genitourinary Symptoms: No Dysuria Musculoskeletal: Back Pain (chronic) Skin: No Rash Neurological: No Focal Weakness, No Headache, No Parasthesia All Other Systems: Reviewed and Negative - Past Medical History Pertinent Past Medical History: Yes Neurological History: Migraines, Peripheral Neuropathy ENT History: No Pertinent History Cardiac History: Hypertension Respiratory History: No Pertinent History, COPD Endocrine Medical History: No Pertinent History Musculoskeletal History: Osteoporosis GI Medical History: No Pertinent History History: Bladder Cancer Psycho-Social History: Depression Male Reproductive Disorders: Prostate Problems Other Medical History: GOUT,cll luekemia. KIDNEY STONE. 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 enlarged prostate. sloedad myopathy - Past Surgical History Past Surgical History: Yes Neuro Surgical History: No Pertinent History Cardiac: No Pertinent History Respiratory: No Pertinent History Gastrointestinal: Hernia Repair Genitourinary: No Pertinent History Musculoskeletal: Orthopedic Surgery Male Surgical History: No Pertinent History Other Surgical History: PAIN PUMP. IMPLANTED TENS UNIT--THEN PAIN PUMP. BACK SURGERY. prostate surgery. skin CA benign - Social History Smoking Status: Former smoker Exposure to second hand smoke: No Drug Use: none Patient Lives Alone: No - Nursing Vital Signs Nursing Vital Signs: Initial Vital Signs Temperature 98.3 F 06/28/17 13:21 Pulse Rate 68 06/28/17 13:21 Respiratory Rate 16 06/28/17 13:21 Blood Pressure 129/79 06/28/17 13:21 O2 Sat by Pulse Oximetry 94 L 06/28/17 13:21 Pain Scale Pain Intensity 5 - Physical Exam General Appearance: alert, obese Eye Exam: PERRL/EOMI Ears, Nose, Throat Exam: dry mucous membranes Neck Exam: normal inspection, supple Respiratory Exam: diminished breath sounds, crackles/rales (bases) Cardiovascular Exam: regular rate/rhythm Gastrointestinal/Abdomen Exam: soft, tenderness (diffuse), distention (mild) Male Genitalia Exam: normal genitalia, No hernia Back Exam: rash (left inguinal tinea) Extremity Exam: pedal edema Neurologic Exam: alert, oriented x 3, cooperative, sensation nml, No motor deficits Skin Exam: warm, dry SpO2 Interpretation: normal SpO2: 94 Oxygen Delivery: Room Air - Course Nursing assessment & vital signs reviewed: Yes EKG Interpreted by Me: RATE (69), Sinus Rhythm, NORMAL AXIS, NORMAL INTERVALS ( QTc 392), Non-specific ST Changes (with diffuse ST depression not present on prior tracing) Ordered Tests: Active Orders 24 hr Category Date Time Status Clean Catch Urine Specimen STAT Care 06/28/17 13:35 Active EKG-ER Only STAT Care 06/28/17 13:35 Active IV Insertion STAT Care 06/28/17 13:35 Active NPO (ED) STAT Care 06/28/17 13:35 Active ABDOMEN AND PELVIS W CONTRAST [CT] Stat Exams 06/28/17 14:39 Taken BLOOD CULTURE Stat Lab 06/28/17 13:40 Received CBC W DIFF Stat Lab 06/28/17 13:40 Completed CMP Stat Lab 06/28/17 13:40 Completed CULTURE,URINE Stat Lab 06/28/17 13:43 Received LIPASE Stat Lab 06/28/17 13:40 Completed Lactic Acid Stat Lab 06/28/17 13:35 Results Manual Differential NC Stat Lab 06/28/17 13:40 Completed TROPONIN Q3H Lab 06/28/17 13:40 Completed TROPONIN Q3H Lab 06/28/17 16:45 Ordered TROPONIN Q3H Lab 06/28/17 19:45 Ordered TROPONIN Q3H Lab 06/28/17 22:45 Ordered TROPONIN Q3H Lab 06/29/17 01:45 Ordered UA W/ MICROSCOPIC Stat Lab 06/28/17 13:43 Completed Medication Summary Generic Name Dose Route Start Last Admin Trade Name Freq PRN Reason Stop Dose Admin Sodium Chloride 1,000 mls @ 250 mls/hr 06/28/17 14:00 06/28/17 14:00 Sodium Chloride 0.9% 1000 Ml IV 07/28/17 13:59 250 mls/hr .Q4H CARMEN Administration Discontinued Medications Generic Name Dose Route Start Last Admin Trade Name Ronaldoq PRN Reason Stop Dose Admin Famotidine 20 mg 06/28/17 13:35 06/28/17 13:51 Pepcid 20 Mg Vial IV 06/28/17 13:36 20 mg STAT ONE Administration Famotidine Confirm 06/28/17 13:50 Pepcid 20 Mg Vial Administered 06/28/17 13:51 Dose 20 mg IV .STK-MED ONE Lab/Rad Data: Laboratory Result Diagrams 06/28/17 13:40 06/28/17 13:40 Laboratory Results 06/28/17 06/28/17 06/28/17 Range/Units 13:43 13:40 13:40 WBC (4.0-10.5) K/mm3 RBC (4.1-5.6) M/mm3 Hgb (12.5-18.0) gm/dl Hct (42-50) % MCV (78-100) fl MCH (26-32) pg MCHC (32-36) g/dl RDW (11.5-14.0) % Plt Count (150-450) K/mm3 MPV (6-9.5) fl Segmented Neutrophils (36.-66.) % Band Neutrophils (0.0-2.0) % Lymphocytes (Manual) (24-44) % Monocytes (Manual) (0.0-12.0) % Differential Comment Atypical Lymphocytes % Platelet Estimate (NORMAL) Polychromasia Poikilocytosis Anisocytosis Sodium 142 (136-145) mEq/L Potassium 4.0 (3.5-5.1) mEq/L Chloride 103 (98-107) mEq/L Carbon Dioxide 32.5 H (21-32) mEq/L Anion Gap 10.4 (5-15) MEQ/L BUN 21 H (9-20) mg/dL Creatinine 1.36 H (0.55-1.30) mg/dl Estimated GFR 55 ML/MIN Glucose 143 H (70-110) MG/DL Lactic Acid (0.4-2.0) Calcium 9.2 (8.5-10.1) mg/dL Total Bilirubin 0.70 (0.2-1.0) mg/dL AST 29 (15-37) U/L ALT 22 (12-78) U/L Alkaline Phosphatase 69 (46-116) U/L Troponin I < 0.017 (0.000-0.056) ng/ml Serum Total Protein 6.3 L (6.4-8.2) gm/dL Albumin 3.8 (3.4-5.0) g/dL Lipase 56 L (73-393) U/L Ur Collection Type CLEAN CATCH Urine Color DARK YELLOW (YELLOW) Urine Appearance CLEAR (CLEAR) Urine pH 7.0 (5-6) Ur Specific Lopez 1.010 (1.005-1.025) Urine Protein NEGATIVE (Negative) Urine Ketones NEGATIVE (NEGATIVE) Urine Blood 50 (0-5) Thomas/ul Urine Nitrite NEGATIVE (NEGATIVE) Urine Bilirubin NEGATIVE (NEGATIVE) Urine Urobilinogen NORMAL (0-1) mg/dL Ur Leukocyte Esterase 2+ (NEGATIVE) Urine Microscopic RBC 25-50 (0-2) /HPF Urine Microscopic WBC 25-50 (0-5) /HPF Ur Epithelial Cells FEW (FEW) /HPF Urine Bacteria MODERATE (NEGATIVE) /HPF Urine Culture Reflexed YES (NO) Urine Glucose NEGATIVE (NEGATIVE) mg/dL Specimen Received 06-28-17 1400 06/28/17 06/28/17 Range/Units 13:40 13:35 WBC 25.1 H* (4.0-10.5) K/mm3 RBC 3.67 L (4.1-5.6) M/mm3 Hgb 12.0 L (12.5-18.0) gm/dl Hct 39.8 L (42-50) % MCV 108.4 H (78-100) fl MCH 32.6 H (26-32) pg MCHC 30.2 L (32-36) g/dl RDW 15.4 H (11.5-14.0) % Plt Count 69 L (150-450) K/mm3 MPV 8.9 (6-9.5) fl Segmented Neutrophils 6 L (36.-66.) % Band Neutrophils 3 H (0.0-2.0) % Lymphocytes (Manual) 72 H (24-44) % Monocytes (Manual) 4 (0.0-12.0) % Differential Comment ABNORMAL Atypical Lymphocytes 15 % Platelet Estimate DECREASED (NORMAL) Polychromasia 1+ Poikilocytosis 1+ Anisocytosis 1+ Sodium (136-145) mEq/L Potassium (3.5-5.1) mEq/L Chloride (98-107) mEq/L Carbon Dioxide (21-32) mEq/L Anion Gap (5-15) MEQ/L BUN (9-20) mg/dL Creatinine (0.55-1.30) mg/dl Estimated GFR ML/MIN Glucose (70-110) MG/DL Lactic Acid 3.3 H (0.4-2.0) Calcium (8.5-10.1) mg/dL Total Bilirubin (0.2-1.0) mg/dL AST (15-37) U/L ALT (12-78) U/L Alkaline Phosphatase (46-116) U/L Troponin I (0.000-0.056) ng/ml Serum Total Protein (6.4-8.2) gm/dL Albumin (3.4-5.0) g/dL Lipase (73-393) U/L Ur Collection Type Urine Color (YELLOW) Urine Appearance (CLEAR) Urine pH (5-6) Ur Specific Lopez (1.005-1.025) Urine Protein (Negative) Urine Ketones (NEGATIVE) Urine Blood (0-5) Thomas/ul Urine Nitrite (NEGATIVE) Urine Bilirubin (NEGATIVE) Urine Urobilinogen (0-1) mg/dL Ur Leukocyte Esterase (NEGATIVE) Urine Microscopic RBC (0-2) /HPF Urine Microscopic WBC (0-5) /HPF Ur Epithelial Cells (FEW) /HPF Urine Bacteria (NEGATIVE) /HPF Urine Culture Reflexed (NO) Urine Glucose (NEGATIVE) mg/dL Specimen Received - Progress Progress Note: 06/28/17 15:08 CT abd/pelvis: velma 3:06 PM 06/28/2017: Compared to 07/17/16. Marked worsening diffuse mesenteric, retroperitoneal, pelvic, & inguinal lymphadenopathy...largest R pelvic 4.2 x 8.1.cm. Also partial visualized distal paraesophageal & R axillary adenopathy. New 16.5cm splenomegaly. Stable fatty liver & B/L renal cysts. 06/28/17 15:[address] Guzmán. Will place in obs for IV abtx to cover his UTI which has not improved with OP oral bactrim. Discussed with .: Ramirez Will see patient in: hospital (observation) Counseled pt/family regarding: lab results, diagnosis, need for follow-up, rad results - Departure Time of Disposition: 15:44 Departure Disposition: Observation (Tele) Clinical Impression: Abdominal pain, abnormal EKG, CLL (chronic lymphocytic leukemia), UTI (urinary tract infection) Condition: Fair Critical Care Time: No Referrals: DOMINIQUE TORRES MD [Primary Care Provider] -
[2017-06-28 13:53] LABS: Hematocrit 39.8 % (42-50); Mean Cell Volume 108.4 fl (78-100); Mean Corpuscular Hgb Concent. 30.2 g/dl (32-36); Mean Platelet Volume 8.9 fl (6-9.5); Platelet Count 69 K/mm3 (150-450); Red Blood Count 3.67 M/mm3 (4.1-5.6); Red Cell Distribution Width 15.4 % (11.5-14.0)
[2017-06-28 13:56] LABS: Lactic Acid 3.3 (0.4-2.0)
[2017-06-28] MEDS ORDERED: Sodium Chloride 0.9% 1000 ML 1,000 ML ONE (13:56)
[2017-06-28] MEDS ORDERED: Sodium Chloride 0.9% 1000 ML 1,000 ML IV SCH (14:00)
[2017-06-28 14:20] LABS: ALBUMIN 3.8 g/dL (3.4-5.0); ANION GAP 10.4 MEQ/L (5-15); BILIRUBIN,TOTAL 0.7 mg/dL (0.2-1.0); Calcium 9.2 mg/dL (8.5-10.1); Carbon Dioxide 32.5 mEq/L (21-32); Creatinine 1 1.36 mg/dl (0.55-1.30); Mean Corpuscular Hemoglobin 32.6 pg (26-32); Total Protein 6.3 gm/dL (6.4-8.2); White Blood Count 25.1 K/mm3 (4.0-10.5)
[2017-06-28 14:24] LABS: Appearance CLEAR (CLEAR); Bacteria MODERATE /HPF (NEGATIVE); Bilirubin NEGATIVE (NEGATIVE); Blood 50 Ery/ul (0-5); Epithelial Cells FEW /HPF (FEW); Glucose NEGATIVE (NEGATIVE); Ketones NEGATIVE (NEGATIVE); Leukocyte Esterase 2+ (NEGATIVE); Nitrite NEGATIVE (NEGATIVE); Protein,Urine Dip NEGATIVE (Negative); Urobilinogen NORMAL mg/dL (0-1); WBC 25-50 /HPF (0-5)
[2017-06-28 14:40] LABS: ATYPICAL LYMPHS 15 %; BAND 3 % (0.0-2.0); Lymphocytes 72 % (24-44); Monocyte 4 % (0.0-12.0); Neutrophils 6 % (36.-66.); Total Cells Counted 100
[2017-06-28 14:41] LABS: ANISOCYTOSIS 1+; Platelet Estimate DECREASED (NORMAL); Poikilocytosis 1+; Polychromasia 1+
[2017-06-28] MEDS ORDERED: ROCEPHIN 1 Gm-D5w 50 ml Bag** 1 G/50 ML IVPB IV STA (15:43)
[2017-06-28] MEDS ORDERED: ROCEPHIN 1 Gm-D5w 50 ml Bag** 1 G/50 ML IVPB IV ONE (15:47)
[2017-06-28] MEDS ORDERED: TYLENOL 325 MG PO PRN (16:39)
[2017-06-28] MEDS ORDERED: Valium 5 MG PO SCH (17:00)
[2017-06-28] MEDS ORDERED: Neurontin 400 MG PO SCH (17:00)
[2017-06-28] MEDS ORDERED: DUONEB 0.5-3 MG/3 ml Neb IH PRN (17:23)
[2017-06-28] MEDS ORDERED: DUONEB 0.5-3 MG/3 ml Neb IH SCH (19:00)
[2017-06-28] MEDS: Klor Con 10 MEQ PO SCH (19:37)
--- NOTE | 2017-06-28 20:24 | XRAY ---
Indication: Abdominal pain and nausea 3 days. History of bladder cancer. Multiple contiguous axial images obtained through the abdomen and pelvis using 80 cc Isovue-370 contrast only. Comparison: July 17, 2016. Lung bases again demonstrates minimal bibasilar atelectasis/scarring and medial right base bleb. Heart is not enlarged. New small centimeter/subcentimeter distal paraesophageal nodes. Also partially visualized prominent right axillary nodes, largest 1.4 x 1.8 cm. There are now enlarged bulky diffuse mesenteric, periaortic, pelvic, and bilateral inguinal lymphadenopathy. Largest is right pelvis measuring 4.2 x 8.1 cm. Findings worrisome lymphomatous malignancy versus metastasis. Also new 16.5 cm splenomegaly. Noncontrasted stomach and bowel loops appear nonobstructed. Normal appendix. Stable diffuse fatty liver and 2 x 5 cm peripheral lesion with enhancement characteristics favoring hemangioma. Stable multiple bilateral renal cysts. Remaining gallbladder, pancreas, adrenal glands, ureters, and bladder appear unremarkable. Again minimal aortoiliac calcifications without AAA. Osseous structures intact again with lower lumbar degenerative changes, L4-L5 fusion surgery with laminectomy, and old right 11th rib fracture. Impression: 1. New diffuse mesenteric, periaortic, pelvic, and bilateral inguinal lymphadenopathy worrisome for metastasis. Also new prominent smaller distal paraesophageal and partially visualized right axillary adenopathy. Primary consideration is for lymphomatous malignancy versus metastasis. 2. New splenomegaly. 3. Stable fatty liver, hepatic hemangioma, and bilateral renal cysts. CTDI 30.07
[2017-06-28] MEDS ORDERED: PATIENT OWN MEDICATION PO SCH (22:00)
[2017-06-28] MEDS ORDERED: Valium 5 MG PO ONE (22:00)
[2017-06-28] MEDS: Sodium Chloride 0.9% 1000 ML 1,000 ML IV SCH (22:16)
[2017-06-28] MEDS: Pepcid 20 MG VIAL IV SCH (22:53)
[2017-06-28] MEDS: Neurontin 400 MG PO SCH (22:53)
[2017-06-29 05:35] LABS: Hematocrit 36.1 % (42-50); Hemoglobin 10.9 gm/dl (12.5-18.0); Mean Cell Volume 108.7 fl (78-100); Mean Corpuscular Hemoglobin 32.8 pg (26-32); Mean Corpuscular Hgb Concent. 30.2 g/dl (32-36); Mean Platelet Volume 8.9 fl (6-9.5); Platelet Count 67 K/mm3 (150-450); Red Blood Count 3.32 M/mm3 (4.1-5.6); Red Cell Distribution Width 15.3 % (11.5-14.0); White Blood Count 21.6 K/mm3 (4.0-10.5)
[2017-06-29 05:58] LABS: ALBUMIN 3.5 g/dL (3.4-5.0); ALKALINE PHOSPHATASE 58 U/L (46-116); ANION GAP 6.9 MEQ/L (5-15); BLOOD UREA NITROGEN 18 mg/dL (9-20); CHLORIDE 105 mEq/L (98-107); Calcium 8.6 mg/dL (8.5-10.1); Carbon Dioxide 34.7 mEq/L (21-32); Creatinine 1 1.21 mg/dl (0.55-1.30); EST GLOMERULAR FILTRATION RATE > 60 ML/MIN; Glucose 92 MG/DL (70-110); Potassium 4.1 mEq/L (3.5-5.1); SGOT/AST 27 U/L (15-37); SGPT/ALT 18 U/L (12-78); SODIUM 143 mEq/L (136-145); Total Protein 5.7 gm/dL (6.4-8.2)
[2017-06-29 06:36] LABS: ATYPICAL LYMPHS 17 %; BAND 1 % (0.0-2.0); Lymphocytes 69 % (24-44); Monocyte 1 % (0.0-12.0); Neutrophils 12 % (36.-66.); Total Cells Counted 100
[2017-06-29 06:37] LABS: ANISOCYTOSIS 1+; Platelet Estimate DECREASED (NORMAL); Poikilocytosis 1+; Polychromasia 1+
[2017-06-29] MEDS ORDERED: NON-FORMULARY ITEM (Sumatriptan Succinate [Imitrex] 100 MG) PO PRN (07:15)
[2017-06-29] MEDS ORDERED: RISEDRONATE SODIUM 150 MG PO SCH (07:15)
[2017-06-29] MEDS: Sodium Chloride 0.9% 1000 ML 1,000 ML IV SCH ×2 (08:08→18:51)
--- NOTE | 2017-06-29 08:26 | PCM.HP ---
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 He has been on a progressive decline over the last 2 years or so. He presented to the ER complaining of abdominal pain that is fairly generalized. He was being treated for UTI as an outpatient on po bactrim , found to have UTI on arrival. CT scan shows generalized adenopathy in the abdomen that is worsening. wbc and platelet levels noted. - Review of Systems Constitutional: Weakness, No Fever, No Chills Respiratory: No Cough, No Short Of Breath Cardiac: No Chest Pain, No Edema, No Syncope Abdominal/Gastrointestinal: Abdominal Pain, No Nausea, No Vomiting, No Diarrhea , No Constipation Genitourinary Symptoms: No Dysuria Skin: No Rash All Other Systems: Reviewed and Negative Medications & Allergies Home Medications: Home Medication List Allopurinol 300 mg [Zyloprim 300 mg] 300 mg PO DAILY 02/20/16 [History Confirmed 06/28/17] Aspirin 81 mg PO DAILY 02/20/16 [History Confirmed 06/28/17] Celecoxib [Celebrex] 200 mg PO DAILY 02/20/16 [History Confirmed 06/28/17] Gabapentin 1,200 mg PO EVENING MEAL 02/20/16 [History Confirmed 06/28/17] Gabapentin 800 mg PO HS 02/20/16 [History Confirmed 06/28/17] Hydrochlorothiazide 25 mg [hydroDIURIL 25 MG] 25 mg PO DAILY 02/20/16 [ History Confirmed 06/28/17] Prednisone 10 mg [Deltasone 10 mg] 10 mg PO DAILY 02/20/16 [History Confirmed 06/28/17] Risedronate Sodium [Actonel] 150 mg PO UD 02/20/16 [History Confirmed 06/28/17] Sumatriptan Succinate [Imitrex] 100 mg PO DAILY PRN 04/13/16 [History Confirmed 06/28/17] Desvenlafaxine Succinate [Pristiq ER] 100 mg PO DAILY 02/24/17 [History Confirmed 06/28/17] Diazepam 5 mg [Valium 5 MG] 2.5 mg PO UD 02/24/17 [History Confirmed 06/28] Albuterol/Ipratropium 3ml Neb* [DUONEB 0.5-3 MG/3 ml Neb] 3 ml IH QID PRN 09/09 [History Confirmed 06/28/17] Ergocalciferol (Vitamin D2) [Vitamin D] 50,000 units PO WEEKLY 06/28/17 [ History Confirmed 06/28/17] Furosemide [Furosemide] 40 mg PO DAILY 06/28/17 [History Confirmed 06/28/17] Potassium Chloride 10 Meq Tab* [Klor Con 10 MEQ] 10 meq PO BID 06/28/17 [ History Confirmed 06/28/17] Potassium Citrate [Urocit-K] 10 meq PO BID 06/28/17 [History Confirmed 06/28/17] Allergies/Adverse Reactions: Allergies Allergy/AdvReac Type Severity Reaction Status Date / Time baclofen Allergy Verified 06/28/17 16:30 cyclobenzaprine Allergy Verified 06/28/17 16:30 [From Flexeril] Penicillins Allergy Verified 06/28/17 16:30 tizanidine [From Zanaflex] Allergy Verified 06/28/17 16:30 - Past Medical History Past Medical History: Yes Neurological History: Migraines, Peripheral Neuropathy ENT History: No Pertinent History Cardiac History: Hypertension Respiratory History: Asthma, COPD Endocrine Medical History: No Pertinent History Musculoskelatal History: Osteoporosis GI Medical History: GERD History: Bladder Cancer Pyscho-Social History: Depression Male Reproductive Disorders: Prostate Problems Comment: GOUT,cll luekemia. KIDNEY STONE. 4.2 AORTIC ANEUR. enlarged prostate. soledad myopathy. dementia. stage one bladder CA - Past Surgical History Past Surgical History: Yes Neuro Surgical History: No Pertinent History Cardiac History: No Pertinent History Respiratory Surgery: No Pertinent History GI Surgical History: Hernia Repair Genitourinary Surgical Hx: No Pertinent History Musculskeletal Surgical Hx: Orthopedic Surgery Male Surgical History: No Pertinent History Other Surgical History: PAIN PUMP. IMPLANTED TENS UNIT--THEN PAIN PUMP. BACK SURGERY multiple. prostate surgery. skin CA benign. TURPB. bladder ca removal. leison removed from lip and right ear - Social History Smoking Status: Former smoker Exposure to second hand smoke: No Alcohol: None Drug Use: none - Physical Exam Vital Signs: Vital Signs - 24 hr Temp Pulse Resp BP Pulse Ox 06/29/17 04:00 98.4 F 54 L 12 142/71 99 06/29/17 00:00 98.3 F 56 L 16 126/61 96 06/28/17 20:00 98.1 F 63 16 126/75 92 L 06/28/17 16:39 59 L 18 95 06/28/17 16:35 98.0 F 55 L 20 151/72 95 06/28/17 16:33 98 F 55 L 20 151/72 95 06/28/17 15:50 58 L 16 92 L 06/28/17 15:45 94 L 06/28/17 15:40 60 18 144/87 94 L 06/28/17 14:50 58 L 16 133/76 94 L 06/28/17 14:04 68 18 137/78 94 L 06/28/17 13:21 98.3 F 68 16 129/79 94 L Oxygen-Last 24 hours O2 Percentage 2 Liters = 28% O2 Percentage 2 Liters = 28% O2 Percentage 2 Liters = 28% O2 Percentage 2 Liters = 28% O2 Percentage 2 Liters = 28% O2 Percentage 2 Liters = 28% O2 Percentage 2 Liters = 28% O2 Percentage 2 Liters = 28% O2 Percentage 2 Liters = 28% General Appearance: no apparent distress, other (chronically ill) Neurologic Exam: alert Respiratory Exam: normal breath sounds, lungs clear, No respiratory distress Cardiovascular Exam: regular rate/rhythm, normal heart sounds, normal peripheral pulses Gastrointestinal/Abdomen Exam: distention, No tenderness, No mass, No guarding Extremity Exam: normal inspection, normal range of motion, pelvis stable Skin Exam: normal color, warm, dry, No rash Results - Labs Lab/Micro Results: Lab Results-Last 24 Hours 06/28/17 06/28/17 06/28/17 Range/Units 17:00 19:45 22:30 WBC (4.0-10.5) K/mm3 RBC (4.1-5.6) M/mm3 Hgb (12.5-18.0) gm/dl Hct (42-50) % MCV (78-100) fl MCH (26-32) pg MCHC (32-36) g/dl RDW (11.5-14.0) % Plt Count (150-450) K/mm3 MPV (6-9.5) fl Segmented Neutrophils (36.-66.) % Band Neutrophils (0.0-2.0) % Lymphocytes (Manual) (24-44) % Monocytes (Manual) (0.0-12.0) % Differential Comment Atypical Lymphocytes % Platelet Estimate (NORMAL) Polychromasia Poikilocytosis Anisocytosis Sodium (136-145) mEq/L Potassium (3.5-5.1) mEq/L Chloride (98-107) mEq/L Carbon Dioxide (21-32) mEq/L Anion Gap (5-15) MEQ/L BUN (9-20) mg/dL Creatinine (0.55-1.30) mg/dl Estimated GFR ML/MIN Glucose (70-110) MG/DL Calcium (8.5-10.1) mg/dL Total Bilirubin (0.2-1.0) mg/dL AST (15-37) U/L ALT (12-78) U/L Alkaline Phosphatase (46-116) U/L Troponin I < 0.017 < 0.017 < 0.017 (0.000-0.056) ng/ml Serum Total Protein (6.4-8.2) gm/dL Albumin (3.4-5.0) g/dL 06/29/17 06/29/17 06/29/17 Range/Units 02:15 05:08 05:08 WBC 21.6 H (4.0-10.5) K/mm3 RBC 3.32 L (4.1-5.6) M/mm3 Hgb 10.9 L (12.5-18.0) gm/dl Hct 36.1 L (42-50) % MCV 108.7 H (78-100) fl MCH 32.8 H (26-32) pg MCHC 30.2 L (32-36) g/dl RDW 15.3 H (11.5-14.0) % Plt Count 67 L (150-450) K/mm3 MPV 8.9 (6-9.5) fl Segmented Neutrophils 12 L (36.-66.) % Band Neutrophils 1 (0.0-2.0) % Lymphocytes (Manual) 69 H (24-44) % Monocytes (Manual) 1 (0.0-12.0) % Differential Comment ABNORMAL Atypical Lymphocytes 17 % Platelet Estimate DECREASED (NORMAL) Polychromasia 1+ Poikilocytosis 1+ Anisocytosis 1+ Sodium 143 (136-145) mEq/L Potassium 4.1 (3.5-5.1) mEq/L Chloride 105 (98-107) mEq/L Carbon Dioxide 34.7 H (21-32) mEq/L Anion Gap 6.9 (5-15) MEQ/L BUN 18 (9-20) mg/dL Creatinine 1.21 (0.55-1.30) mg/dl Estimated GFR > 60 ML/MIN Glucose 92 (70-110) MG/DL Calcium 8.6 (8.5-10.1) mg/dL Total Bilirubin 0.70 (0.2-1.0) mg/dL AST 27 (15-37) U/L ALT 18 (12-78) U/L Alkaline Phosphatase 58 (46-116) U/L Troponin I < 0.017 (0.000-0.056) ng/ml Serum Total Protein 5.7 L (6.4-8.2) gm/dL Albumin 3.5 (3.4-5.0) g/dL - Other Procedures and Tests Respiratory Therapy 06/28/17 17:24 BiPap/CPAP Assessment ROUTINE Respiratory Nebulizer PRN Assessment/Plan (1) UTI (urinary tract infection) Current Visit: Yes Status: Acute Assessment & Plan: on rocephin at this time, had E coli on urine culture from 06/22/17 Code(s): N39.0 - URINARY TRACT INFECTION, SITE NOT SPECIFIED (2) Abdominal pain Current Visit: Yes Status: Acute Assessment & Plan: adenopathy worsening. Code(s): R10.9 - UNSPECIFIED ABDOMINAL PAIN (3) CLL (chronic lymphocytic leukemia) Current Visit: Yes Status: Acute Code(s): C91.10 - CHRONIC LYMPHOCYTIC LEUK OF B-CELL TYPE NOT ACHIEVE REMIS
[2017-06-29] MEDS: ZYLOPRIM 300 MG PO SCH (09:40)
[2017-06-29] MEDS: PRISTIQ ER PO SCH (09:40)
[2017-06-29] MEDS: ECOTRIN 81 MG PO SCH (09:40)
[2017-06-29] MEDS: celeBREX 100 MG PO SCH (09:40)
[2017-06-29] MEDS: LASIX 20 MG PO SCH (09:40)
[2017-06-29] MEDS: Klor Con 10 MEQ PO SCH ×2 (09:41→22:13)
[2017-06-29] MEDS: hydroDIURIL 25 MG PO SCH (09:41)
[2017-06-29] MEDS: DELTASONE 10 MG PO SCH (09:41)
[2017-06-29] MEDS ORDERED: ROCEPHIN 1 Gm-D5w 50 ml Bag** 1 G/50 ML IVPB IV SCH (10:00)
[2017-06-29] MEDS ORDERED: NON-FORMULARY ITEM (Aspirin [Aspirin] 81 MG) PO SCH (10:00)
[2017-06-29] MEDS ORDERED: NON-FORMULARY ITEM (Celecoxib [Celebrex] 200 MG) PO SCH (10:00)
[2017-06-29] MEDS ORDERED: Zofran 4 MG/2 ML VIAL IV PRN (10:26)
[2017-06-29] MEDS: Pepcid 20 MG VIAL IV SCH ×2 (10:37→22:14)
[2017-06-29] MEDS: SUBLIMAZE 100 MCG/2 ML IV PRN ×2 (10:37→20:17)
[2017-06-29] MEDS: PATIENT OWN MEDICATION PO SCH ×2 (11:57→22:14)
[2017-06-29] MEDS: Valium 5 MG PO SCH ×2 (17:59→22:17)
[2017-06-29] MEDS: Neurontin 400 MG PO SCH ×2 (17:59→22:14)
[2017-06-30] MEDS: Sodium Chloride 0.9% 1000 ML 1,000 ML IV SCH ×3 (04:06→21:08)
[2017-06-30 06:12] LABS: Hematocrit 36.3 % (42-50); Hemoglobin 11.2 gm/dl (12.5-18.0); Mean Cell Volume 106.5 fl (78-100); Mean Corpuscular Hemoglobin 32.8 pg (26-32); Mean Corpuscular Hgb Concent. 30.9 g/dl (32-36); Mean Platelet Volume 9.4 fl (6-9.5); Platelet Count 74 K/mm3 (150-450); Red Blood Count 3.41 M/mm3 (4.1-5.6); Red Cell Distribution Width 15.2 % (11.5-14.0)
[2017-06-30 06:35] LABS: ALBUMIN 3.7 g/dL (3.4-5.0); ALKALINE PHOSPHATASE 60 U/L (46-116); ANION GAP 9.2 MEQ/L (5-15); BLOOD UREA NITROGEN 15 mg/dL (9-20); CHLORIDE 108 mEq/L (98-107); Calcium 8.6 mg/dL (8.5-10.1); Carbon Dioxide 31.2 mEq/L (21-32); Creatinine 1 1.09 mg/dl (0.55-1.30); EST GLOMERULAR FILTRATION RATE > 60 ML/MIN; Glucose 103 MG/DL (70-110); Potassium 3.6 mEq/L (3.5-5.1); SGOT/AST 29 U/L (15-37); SGPT/ALT 19 U/L (12-78); SODIUM 145 mEq/L (136-145); Total Protein 6.1 gm/dL (6.4-8.2)
[2017-06-30 07:23] LABS: BAND 1 % (0.0-2.0); Eosinophil 1 % (0.00-3.0); Lymphocytes 85 % (24-44); Metamyelocyte 1 %; Monocyte 4 % (0.0-12.0); Neutrophils 8 % (36.-66.); Total Cells Counted 100
[2017-06-30 07:24] LABS: Platelet Estimate DECREASED (NORMAL)
[2017-06-30 07:26] LABS: Polychromasia 1+
[2017-06-30] MEDS: Merrem 1 GM 1 G in Sodium Chloride 100ML MINI-BAG PLUS 100 ML IV SCH ×3 (08:11→21:00)
--- NOTE | 2017-06-30 09:11 | PCM.NOTE ---
Date and Time: 06/30/17905 Subjective Assessment: Pt states he feels "terrible" then tells me he feels much better than at admission then asks if he can go home today. - Review of Systems Constitutional: No Fever Abdominal/Gastrointestinal: Abdominal Pain Objective Exam General Appearance: no apparent distress, obese Neurologic Exam: alert, cooperative Skin Exam: normal color, warm, dry, No rash Respiratory Exam: normal breath sounds, lungs clear, No crackles/rales, No rhonchi, No wheezing Cardiovascular Exam: regular rate/rhythm, normal heart sounds, No murmur Gastrointestinal/Abdomen Exam: soft, normal bowel sounds, distention, No tenderness, No mass, No guarding, No rebound Extremity Exam: No pedal edema, No swelling Back Exam: normal inspection, No rash OBJECTIVE DATA Vital Signs: Vital Signs - 24 hr Temp Pulse Resp BP Pulse Ox 06/30/17 07:23 98.7 F 61 18 132/72 96 06/30/17 07:00 55 L 16 95 06/30/17 04:00 98.2 F 60 20 128/67 93 L 06/30/17 00:00 98.4 F 62 16 122/59 92 L 06/29/17 22:48 62 20 93 L 06/29/17 20:00 97.6 F 65 20 150/68 94 L 06/29/17 16:00 97.8 F 76 16 127/72 95 06/29/17 12:00 97.7 F 74 22 125/71 94 L Oxygen-Last 24 hours O2 Percentage 2 Liters = 28% O2 Percentage 2 Liters = 28% O2 Percentage 2 Liters = 28% O2 Percentage 2 Liters = 28% Pain Assessment - Last Documented Pain Intensity 6 Pain Scale Used 0-10 Pain Scale Intake and Output: Intake & Output 06/27/17 06/28/17 06/29/17 06/30/17 11:59 11:59 11:59 11:59 Intake Total 0 4076 Output Total 200 Balance 1850 4076 Weight 108.8 kg Lab Results: Lab Results-Last 24 Hours 06/30/17 06/30/17 Range/Units 05:30 05:44 WBC 29.0 H* (4.0-10.5) K/mm3 RBC 3.41 L (4.1-5.6) M/mm3 Hgb 11.2 L (12.5-18.0) gm/dl Hct 36.3 L (42-50) % MCV 106.5 H (78-100) fl MCH 32.8 H (26-32) pg MCHC 30.9 L (32-36) g/dl RDW 15.2 H (11.5-14.0) % Plt Count 74 L (150-450) K/mm3 MPV 9.4 (6-9.5) fl Segmented Neutrophils 8 L (36.-66.) % Band Neutrophils 1 (0.0-2.0) % Lymphocytes (Manual) 85 H (24-44) % Monocytes (Manual) 4 (0.0-12.0) % Eosinophils (Manual) 1 (0.00-3.0) % Metamyelocytes 1 % Differential Comment ABNORMAL Platelet Estimate DECREASED (NORMAL) Polychromasia 1+ Sodium 145 (136-145) mEq/L Potassium 3.6 (3.5-5.1) mEq/L Chloride 108 H (98-107) mEq/L Carbon Dioxide 31.2 (21-32) mEq/L Anion Gap 9.2 (5-15) MEQ/L BUN 15 (9-20) mg/dL Creatinine 1.09 (0.55-1.30) mg/dl Estimated GFR > 60 ML/MIN Glucose 103 (70-110) MG/DL Calcium 8.6 (8.5-10.1) mg/dL Magnesium 2.0 (1.8-2.4) mg/dL Total Bilirubin 0.50 (0.2-1.0) mg/dL AST 29 (15-37) U/L ALT 19 (12-78) U/L Alkaline Phosphatase 60 (46-116) U/L Serum Total Protein 6.1 L (6.4-8.2) gm/dL Albumin 3.7 (3.4-5.0) g/dL Assessment/Plan (1) UTI (urinary tract infection) Current Visit: Yes Status: Acute Qualifiers: Urinary tract infection type: acute cystitis Assessment & Plan: Came in on po bactrim, was changed to IV rocephin, and last night changed to meropenem. Code(s): N39.0 - URINARY TRACT INFECTION, SITE NOT SPECIFIED (2) Abdominal pain Current Visit: Yes Status: Acute Qualifiers: Abdominal location: generalized Qualified Code(s): R10.84 - Generalized abdominal pain Assessment & Plan: Difficult historian this morning, states he always has some abdominal pain, but this is improved. States he wonders about kidney stones. He did have CT at admission but with contrast. His lymphadenopathy on CT was thought to be related to lymphoma or metastases but wonder if there could be an infectious component. Would like him to stay at least one more day on IV abx and recheck labs in a.m. Code(s): R10.9 - UNSPECIFIED ABDOMINAL PAIN (3) Leukocytosis Current Visit: Yes Status: Acute Assessment & Plan: increased this am, whether related solely to CLL or infection I am unsure. It is up 8,000 from yesterday. Code(s): D72.829 - ELEVATED WHITE BLOOD CELL COUNT, UNSPECIFIED (4) CLL (chronic lymphocytic leukemia) Current Visit: Yes Status: Chronic Code(s): C91.10 - CHRONIC LYMPHOCYTIC LEUK OF B-CELL TYPE NOT ACHIEVE REMIS
[2017-06-30] MEDS: Klor Con 10 MEQ PO SCH ×2 (10:20→21:01)
[2017-06-30] MEDS: celeBREX 100 MG PO SCH (10:20)
[2017-06-30] MEDS: LASIX 20 MG PO SCH (10:20)
[2017-06-30] MEDS: ZYLOPRIM 300 MG PO SCH (10:21)
[2017-06-30] MEDS: DELTASONE 10 MG PO SCH (10:21)
[2017-06-30] MEDS: ECOTRIN 81 MG PO SCH (10:22)
[2017-06-30] MEDS: hydroDIURIL 25 MG PO SCH (10:23)
[2017-06-30] MEDS: PATIENT OWN MEDICATION PO SCH ×2 (10:23→23:24)
[2017-06-30] MEDS: Pepcid 20 MG VIAL IV SCH ×2 (10:23→21:01)
[2017-06-30] MEDS: PRISTIQ ER PO SCH (10:23)
[2017-06-30] MEDS: Neurontin 400 MG PO SCH ×2 (16:48→21:01)
[2017-06-30] MEDS: Valium 5 MG PO SCH ×2 (16:48→21:01)
[2017-06-30] MEDS: SUBLIMAZE 100 MCG/2 ML IV PRN (18:13)
[2017-07-01] MEDS: Merrem 1 GM 1 G in Sodium Chloride 100ML MINI-BAG PLUS 100 ML IV SCH (05:46)
[2017-07-01 06:21] LABS: Hematocrit 34.2 % (42-50); Hemoglobin 10.2 gm/dl (12.5-18.0); Mean Cell Volume 108.9 fl (78-100); Mean Corpuscular Hgb Concent. 29.8 g/dl (32-36); Mean Platelet Volume 9.5 fl (6-9.5); Platelet Count 67 K/mm3 (150-450); Red Blood Count 3.14 M/mm3 (4.1-5.6); Red Cell Distribution Width 15.2 % (11.5-14.0); White Blood Count 21.7 K/mm3 (4.0-10.5)
[2017-07-01 06:24] LABS: Mean Corpuscular Hemoglobin 32.4 pg (26-32)
[2017-07-01 07:07] VITALS: BP 140/69; PULSE 57; O2SAT 91
[2017-07-01 07:31] LABS: ANION GAP 7.4 MEQ/L (5-15); BLOOD UREA NITROGEN 13 mg/dL (9-20); CHLORIDE 108 mEq/L (98-107); Calcium 8.5 mg/dL (8.5-10.1); Carbon Dioxide 34.2 mEq/L (21-32); Creatinine 1 0.99 mg/dl (0.55-1.30); EST GLOMERULAR FILTRATION RATE > 60 ML/MIN; Glucose 107 MG/DL (70-110); Potassium 3.2 mEq/L (3.5-5.1); SODIUM 146 mEq/L (136-145)
[2017-07-01 07:33] LABS: ATYPICAL LYMPHS 5 %; BAND 4 % (0.0-2.0); Lymphocytes 67 % (24-44); Metamyelocyte 1 %; Monocyte 4 % (0.0-12.0); Neutrophils 19 % (36.-66.); Nucleated Red Blood Cell 1 %; Platelet Estimate DECREASED (NORMAL); Poikilocytosis 1+; Polychromasia 1+; Total Cells Counted 100
--- NOTE | 2017-07-01 09:11 | PCM.DS ---
Discharge Summary Date of Admission: 06/29/17 08:21 Admitting Physician: DOMINIQUE TORRES Primary Care Provider: DOMINIQUE TORRES Allergies Allergies baclofen Allergy (Verified 06/28/17 16:30) weakness cyclobenzaprine [From Flexeril] Allergy (Verified 06/28/17 16:30) walks like he is drunk Penicillins Allergy (Verified 06/28/17 16:30) rash tizanidine [From Zanaflex] Allergy (Verified 06/28/17 16:30) weakness Hospital Summary - Hospital Course Hospital Course: patient admitted with abd pain, UTI and had failed outpatient therapy with bactrim - Vitals & Intake/Output Vital Signs: Vital Signs Temperature 97.8 F 07/01/17 07:06 Pulse Rate 57 L 07/01/17 07:06 Respiratory Rate 18 07/01/17 07:06 Blood Pressure 140/69 07/01/17 07:06 O2 Sat by Pulse Oximetry 91 L 07/01/17 07:06 Oxygen-Last Documented O2 Percentage 2 Liters = 28% Intake & Output: Intake & Output 06/28/17 06/29/17 06/30/17 07/01/17 11:59 11:59 11:59 11:59 Intake Total 4074 3781 Balance 4077 1711 - Lab Result Diagrams: 07/01/17 05:15 07/01/17 05:15 Lab Results-Last 24 Hrs: Lab Results-Last 24 Hours 07/01/17 07/01/17 Range/Units 05:15 05:15 WBC 21.7 H (4.0-10.5) K/mm3 RBC 3.14 L (4.1-5.6) M/mm3 Hgb 10.2 L (12.5-18.0) gm/dl Hct 34.2 L (42-50) % MCV 108.9 H (78-100) fl MCH 32.4 H (26-32) pg MCHC 29.8 L (32-36) g/dl RDW 15.2 H (11.5-14.0) % Plt Count 67 L (150-450) K/mm3 MPV 9.5 (6-9.5) fl Segmented Neutrophils 19 L (36.-66.) % Band Neutrophils 4 H (0.0-2.0) % Lymphocytes (Manual) 67 H (24-44) % Monocytes (Manual) 4 (0.0-12.0) % Metamyelocytes 1 % Nucleated RBCs 1 % Differential Comment ABNORMAL Atypical Lymphocytes 5 % Platelet Estimate DECREASED (NORMAL) Polychromasia 1+ Poikilocytosis 1+ Sodium 146 H (136-145) mEq/L Potassium 3.2 L (3.5-5.1) mEq/L Chloride 108 H (98-107) mEq/L Carbon Dioxide 34.2 H (21-32) mEq/L Anion Gap 7.4 (5-15) MEQ/L BUN 13 (9-20) mg/dL Creatinine 0.99 (0.55-1.30) mg/dl Estimated GFR > 60 ML/MIN Glucose 107 (70-110) MG/DL Calcium 8.5 (8.5-10.1) mg/dL Discharge Exam General Appearance: no apparent distress, alert, other (chronically ill) Skin Exam: normal color, warm, dry Eye Exam: PERRL, EOMI, eyes nml inspection Respiratory Exam: normal breath sounds, lungs clear, No respiratory distress Cardiovascular Exam: regular rate/rhythm, normal heart sounds Gastrointestinal/Abdomen Exam: distention, No guarding, No rebound Extremity Exam: normal inspection, normal range of motion Final Diagnosis/Problem List - Final Discharge Diagnosis/Problem (1) UTI (urinary tract infection) Current Visit: Yes Status: Acute Assessment & Plan: will d/c home on macrobid (2) Failure of outpatient treatment Current Visit: Yes Status: Acute (3) Abdominal pain Current Visit: Yes Status: Acute (4) CLL (chronic lymphocytic leukemia) Current Visit: Yes Status: Chronic Assessment & Plan: needs to f/u with Dr Holder regarding increased adenopathy - Discharge Disposition: Home, Self-Care Condition: Fair Prescriptions: New Nitrofurantoin Monohyd/M-Cryst [Macrobid 100 mg Capsule] 100 mg PO BID #14 capsule Continue Risedronate Sodium [Actonel] 150 mg PO UD Prednisone 10 mg [Deltasone 10 mg] 10 mg PO DAILY Gabapentin 800 mg PO HS Gabapentin 1,200 mg PO EVENING MEAL Celecoxib [Celebrex] 200 mg PO DAILY Aspirin 81 mg PO DAILY Hydrochlorothiazide 25 mg [hydroDIURIL 25 MG] 25 mg PO DAILY Allopurinol 300 mg [Zyloprim 300 mg] 300 mg PO DAILY Sumatriptan Succinate [Imitrex] 100 mg PO DAILY PRN PRN Reason: Headache Desvenlafaxine Succinate [Pristiq ER] 100 mg PO DAILY Diazepam 5 mg [Valium 5 MG] 2.5 mg PO UD Furosemide 40 mg PO DAILY Potassium Chloride 10 Meq Tab* [Klor Con 10 MEQ] 10 meq PO BID Potassium Citrate [Urocit-K] 10 meq PO BID Ergocalciferol (Vitamin D2) [Vitamin D] 50,000 units PO WEEKLY Albuterol/Ipratropium 3ml Neb* [DUONEB 0.5-3 MG/3 ml Neb] 3 ml IH QID PRN Follow up with: DOMINIQUE TORRES MD [Primary Care Provider] - HOANG HOLDER [CONSULTING PHYSICIAN] - 1 Week
[2017-07-01] MEDS ORDERED: VITAMIN D2 PO SCH (10:00)
[2017-07-09] MEDS ORDERED: RISEDRONATE SODIUM 150 MG PO SCH (10:00)
== END 2017-07-01 10:32 | disposition home or self-care (01) | DRG 690 ==
LOC: ED 13:13 → MED SURG 16:24 → OBSVTOIN 06-29 08:21
PROVIDERS: ADMIT Family Medicine; ATTEND Family Medicine
DX: R10.9 Unspecified abdominal pain (principal); N39.0 Urinary tract infection, site not specified; C91.10 Chronic lymphocytic leukemia of B-cell type not having achieved remission; R94.31 Abnormal electrocardiogram [ECG] [EKG]; R16.1 Splenomegaly, not elsewhere classified; K76.0 Fatty (change of) liver, not elsewhere classified; Z78.9 Other specified health status; Z79.899 Other long term (current) drug therapy; G62.9 Polyneuropathy, unspecified; I10 Essential (primary) hypertension; J45.909 Unspecified asthma, uncomplicated; M10.9 Gout, unspecified; Z87.891 Personal history of nicotine dependence; J44.9 Chronic obstructive pulmonary disease, unspecified; M81.0 Age-related osteoporosis without current pathological fracture; K21.9 Gastro-esophageal reflux disease without esophagitis; Z85.51 Personal history of malignant neoplasm of bladder; F32.9 Major depressive disorder, single episode, unspecified; D72.829 Elevated white blood cell count, unspecified
CPT/HCPCS: 36000; 36415; 74177; 80048; 80053; 81000; 83605; 83690; 83735; 84484; 85025; 87040; 87077; 87086; 87186; 93005; 93268; 94660; 94760; 96360; 96365; 96374; 99285; G0378; J0696; J2405; J3010; A9270-GY

== ENCOUNTER 2017-08-11 11:53 | Inpatient (IN) | payer MEDICARE, BC ==
[2017-08-11] MEDS ORDERED: PROVENTIL 2.5 MG/3 ML NEB IH ONE ×2 (12:19→12:24)
[2017-08-11 12:36] LABS: Lactic Acid 2.5 (0.4-2.0)
--- NOTE | 2017-08-11 12:40 | ERPHSYRPT ---
- History of Present Illness Time Seen by Provider: 08/11/17 12:13 Source: patient, family () Patient Subjective Stated Complaint: blood in the urine, cough and congestion Triage Nursing Assessment: pt to er c/o blood in the urine, has hx of kidney stones, denies difficulty with urination, denies pain, indicates pt has dementia, also states cough and congestion, seen at [facility] thursday and started on levaquin, began chemo on july 27, patient has pain at the meatus during urination Physician History: CC: cough Hx: 71 y/o patient of Dr Torres with coughing, gurgling, some dyspnea. He has hx of CHF. He is on oral chemotherapy for lymphoma. He had cough last week and was seen in [facility] and started levaquin. It is persisting and worse. No fever or chills. Feels fatigue and general weakness. Today gurgling with respirations. He was in shower and had blood dripping. Not sure where it came from. No back pain or dysuria. Did not see blood in urine but wondered if that is where it came from. Allergies/Adverse Reactions: baclofen Allergy (Verified 06/28/17 16:30) weakness cyclobenzaprine [From Flexeril] Allergy (Verified 06/28/17 16:30) walks like he is drunk Penicillins Allergy (Verified 06/28/17 16:30) rash tizanidine [From Zanaflex] Allergy (Verified 06/28/17 16:30) weakness fentanyl Adverse Reaction (Intermediate, Verified 07/01/17 12:22) Caused hallucinations, agitation, confrontation. Home Medications: Allopurinol 300 mg [Zyloprim 300 mg] 300 mg PO DAILY 02/20/16 [History] Aspirin 81 mg PO DAILY 02/20/16 [History] Celecoxib [Celebrex] 200 mg PO DAILY 02/20/16 [History] Gabapentin 1,200 mg PO EVENING MEAL 02/20/16 [History] Gabapentin 800 mg PO HS 02/20/16 [History] Hydrochlorothiazide 25 mg [hydroDIURIL 25 MG] 25 mg PO DAILY 02/20/16 [ History] Prednisone 10 mg [Deltasone 10 mg] 10 mg PO DAILY 02/20/16 [History] Risedronate Sodium [Actonel] 150 mg PO UD 02/20/16 [History] Sumatriptan Succinate [Imitrex] 100 mg PO DAILY PRN 04/13/16 [History] Desvenlafaxine Succinate [Pristiq ER] 100 mg PO DAILY 02/24/17 [History] Diazepam 5 mg [Valium 5 MG] 2.5 mg PO UD 02/24/17 [History] Albuterol/Ipratropium 3ml Neb* [DUONEB 0.5-3 MG/3 ml Neb] 3 ml IH QID PRN 09/09 [History] Ergocalciferol (Vitamin D2) [Vitamin D] 50,000 units PO WEEKLY 06/28/17 [History ] Furosemide 40 mg PO DAILY 06/28/17 [History] Potassium Chloride 10 Meq Tab* [Klor Con 10 MEQ] 10 meq PO BID 06/28/17 [ History] Potassium Citrate [Urocit-K] 10 meq PO BID 06/28/17 [History] Hydromorphone HCl [Dilaudid] 08/11/17 [History] Ibrutinib [Imbruvica] 3 08/11/17 [History] Menthol [Biofreeze] 08/11/17 [History] Oxycodone HCl/Acetaminophen [Percocet 10-325 mg Tablet] 15 mg PO 08/11/17 [ History] Hx Tetanus, Diphtheria Vaccination/Date Given: No Hx Influenza Vaccination/Date Given: Yes Hx Pneumococcal Vaccination/Date Given: Yes Immunizations Up to Date: No - Review of Systems Constitutional: Fatigue, Malaise, Weakness, No Fever, No Chills Eyes: No Symptoms Ears, Nose, & Throat: No Symptoms Respiratory: Cough, Dyspnea Cardiac: Edema Abdominal/Gastrointestinal: No Abdominal Pain, No Nausea, No Vomiting, No Diarrhea Genitourinary Symptoms: No Dysuria Skin: No Rash Neurological: No Headache All Other Systems: Reviewed and Negative - Past Medical History Pertinent Past Medical History: Yes Neurological History: Dementia, Migraines ENT History: No Pertinent History Cardiac History: Aneurysm, Congestive Heart Failure Respiratory History: Asthma, COPD Endocrine Medical History: Liver Disease Musculoskeletal History: Other GI Medical History: GERD History: Bladder Cancer Psycho-Social History: Anxiety, Depression Male Reproductive Disorders: Other Other Medical History: desmin myopathy - Past Surgical History Past Surgical History: Yes Neuro Surgical History: No Pertinent History Cardiac: No Pertinent History Respiratory: No Pertinent History Gastrointestinal: Hernia Repair Genitourinary: No Pertinent History Musculoskeletal: Orthopedic Surgery Male Surgical History: No Pertinent History Other Surgical History: PAIN PUMP. IMPLANTED TENS UNIT--THEN PAIN PUMP. BACK SURGERY multiple. prostate surgery. skin CA benign. TURPB. bladder ca removal. leison removed from lip and right ear - Social History Smoking Status: Never smoker Exposure to second hand smoke: No Drug Use: none Patient Lives Alone: No - Nursing Vital Signs Nursing Vital Signs: Initial Vital Signs Temperature 97.6 F 08/11/17 12:02 Pulse Rate 48 L 08/11/17 12:02 Respiratory Rate 22 08/11/17 12:02 Blood Pressure 138/68 08/11/17 12:02 O2 Sat by Pulse Oximetry 95 08/11/17 12:02 Pain Scale Pain Intensity 0 - Physical Exam General Appearance: alert, obese Eye Exam: PERRL/EOMI Ears, Nose, Throat Exam: normal ENT inspection, moist mucous membranes Neck Exam: normal inspection, non-tender, supple Respiratory Exam: crackles/rales (both bases 1/3 up), No respiratory distress Cardiovascular Exam: regular rate/rhythm Gastrointestinal/Abdomen Exam: soft, No tenderness, No distention Male Genitalia Exam: normal genitalia (no blood noted from meatus) Back Exam: normal inspection Neurologic Exam: alert, oriented x 3, cooperative, sensation nml, No motor deficits Skin Exam: warm, dry, No rash SpO2 Interpretation: normal SpO2: 95 Oxygen Delivery: Nasal Cannula - Course Nursing assessment & vital signs reviewed: Yes EKG Interpreted by Me: RATE (47), Sinus Terry, NORMAL AXIS, NORMAL INTERVALS ( QTc 368), Non-specific ST Changes, Other (pt reports he normally has bradycardia ) Ordered Tests: Active Orders 24 hr Category Date Time Status Community Chest Officer STAT Care 08/11/17 12:20 Active EKG-ER Only STAT Care 08/11/17 12:19 Active IV Insertion STAT Care 08/11/17 12:19 Active Oxygen-ED Only NASAL CANNULA 2 lpm Care 08/11/17 12:19 Active Pulse Oximetry (ED) STAT Care 08/11/17 12:19 Active Rectal Temperature STAT Care 08/11/17 12:19 Active CHEST 2 VIEWS (PA AND LAT) Stat Exams 08/11/17 12:20 Completed BLOOD CULTURE Stat Lab 08/11/17 12:40 Received CBC W DIFF Stat Lab 08/11/17 12:30 Completed CMP Stat Lab 08/11/17 12:30 Completed Lactic Acid Stat Lab 08/11/17 12:30 Completed Lactic Acid Stat Lab 08/11/17 14:36 Ordered Manual Differential NC Stat Lab 08/11/17 12:30 Completed NT PRO BNP Stat Lab 08/11/17 12:30 Completed PROTIME WITH INR Stat Lab 08/11/17 12:30 Completed PTT Stat Lab 08/11/17 12:30 Completed UA W/ MICROSCOPIC Stat Lab 08/11/17 13:05 Completed Respiratory Nebulizer STAT RT 08/11/17 12:20 Completed Medication Summary Generic Name Dose Route Start Last Admin Trade Name Freq PRN Reason Stop Dose Admin Ceftriaxone Sodium/Dextrose 1 g in 50 mls @ 100 mls/hr 08/11/17 14:45 Rocephin 1 Gm-D5w 50 Ml Bag IV 08/11/17 15:14 STAT STA Discontinued Medications Generic Name Dose Route Start Last Admin Trade Name Freq PRN Reason Stop Dose Admin Albuterol Sulfate 2.5 mg 08/11/17 12:19 08/11/17 12:28 Proventil 2.5 Mg/3 Ml Neb IH 08/11/17 12:20 2.5 mg STAT ONE Administration Albuterol Sulfate Confirm 08/11/17 12:24 Proventil 2.5 Mg/3 Ml Neb Administered 08/11/17 12:25 Dose 2.5 mg IH .STK-MED ONE Furosemide 20 mg 08/11/17 14:44 Lasix 40 Mg/4 Ml IV 08/11/17 14:45 STAT ONE Lab/Rad Data: Laboratory Result Diagrams 08/11/17 12:30 08/11/17 12:30 Laboratory Results 08/11/17 08/11/17 08/11/17 Range/Units 13:05 12:30 12:30 WBC (4.0-10.5) K/mm3 RBC (4.1-5.6) M/mm3 Hgb (12.5-18.0) gm/dl Hct (42-50) % MCV (78-100) fl MCH (26-32) pg MCHC (32-36) g/dl RDW (11.5-14.0) % Plt Count (150-450) K/mm3 MPV (6-9.5) fl Segmented Neutrophils (36.-66.) % Band Neutrophils (0.0-2.0) % Lymphocytes (Manual) (24-44) % Differential Comment Platelet Estimate (NORMAL) Polychromasia Poikilocytosis Anisocytosis INR 1.02 (0.8-3.0) APTT 25.7 (24.1-36.1) SECONDS Sodium 142 (137-145) mmol/L Potassium 3.4 L (3.5-5.1) mmol/L Chloride 96 L (98-107) mmol/L Carbon Dioxide 39 H (22-30) mmol/L Anion Gap 11.2 (5-15) MEQ/L BUN 17 (9-20) mg/dL Creatinine 0.92 (0.66-1.25) mg/dL Estimated GFR > 60 ML/MIN Glucose 128 H (74-106) mg/dL Lactic Acid (0.4-2.0) Calcium 9.1 (8.4-10.2) mg/dL Total Bilirubin 0.60 (0.2-1.3) mg/dL AST 37 (17-59) U/L ALT 23 (0-50) U/L Alkaline Phosphatase 48 (38-126) U/L NT-Pro-B Natriuret Pep 351 (0-900) pg/mL Serum Total Protein 5.4 L (6.3-8.2) g/dL Albumin 3.5 (3.5-5.0) g/dL Ur Collection Type VOID Urine Color YELLOW (YELLOW) Urine Appearance CLEAR (CLEAR) Urine pH 7.0 (5-6) Ur Specific [place] 1.005 (1.005-1.025) Urine Protein NEGATIVE (Negative) Urine Ketones NEGATIVE (NEGATIVE) Urine Blood 5-10 (0-5) Thomas/ul Urine Nitrite NEGATIVE (NEGATIVE) Urine Bilirubin NEGATIVE (NEGATIVE) Urine Urobilinogen NORMAL (0-1) mg/dL Ur Leukocyte Esterase NEGATIVE (NEGATIVE) Urine Microscopic RBC 0-2 (0-2) /HPF Urine Bacteria RARE (NEGATIVE) /HPF Urine Culture Reflexed NO (NO) Urine Glucose NEGATIVE (NEGATIVE) mg/dL Specimen Received 08/11/17 1305 08/11/17 08/11/17 Range/Units 12:30 12:30 WBC 37.5 H* (4.0-10.5) K/mm3 RBC 2.96 L (4.1-5.6) M/mm3 Hgb 10.0 L (12.5-18.0) gm/dl Hct 33.4 L (42-50) % MCV 112.8 H (78-100) fl MCH 33.7 H (26-32) pg MCHC 29.9 L (32-36) g/dl RDW 16.8 H (11.5-14.0) % Plt Count 83 L (150-450) K/mm3 MPV 10.7 H (6-9.5) fl Segmented Neutrophils 8 L (36.-66.) % Band Neutrophils 2 (0.0-2.0) % Lymphocytes (Manual) 90 H (24-44) % Differential Comment ABNORMAL Platelet Estimate DECREASED (NORMAL) Polychromasia RARE Poikilocytosis 1+ Anisocytosis 1+ INR (0.8-3.0) APTT (24.1-36.1) SECONDS Sodium (137-145) mmol/L Potassium (3.5-5.1) mmol/L Chloride (98-107) mmol/L Carbon Dioxide (22-30) mmol/L Anion Gap (5-15) MEQ/L BUN (9-20) mg/dL Creatinine (0.66-1.25) mg/dL Estimated GFR ML/MIN Glucose (74-106) mg/dL Lactic Acid 2.5 H (0.4-2.0) Calcium (8.4-10.2) mg/dL Total Bilirubin (0.2-1.3) mg/dL AST (17-59) U/L ALT (0-50) U/L Alkaline Phosphatase (38-126) U/L NT-Pro-B Natriuret Pep (0-900) pg/mL Serum Total Protein (6.3-8.2) g/dL Albumin (3.5-5.0) g/dL Ur Collection Type Urine Color (YELLOW) Urine Appearance (CLEAR) Urine pH (5-6) Ur Specific [place] (1.005-1.025) Urine Protein (Negative) Urine Ketones (NEGATIVE) Urine Blood (0-5) Thomas/ul Urine Nitrite (NEGATIVE) Urine Bilirubin (NEGATIVE) Urine Urobilinogen (0-1) mg/dL Ur Leukocyte Esterase (NEGATIVE) Urine Microscopic RBC (0-2) /HPF Urine Bacteria (NEGATIVE) /HPF Urine Culture Reflexed (NO) Urine Glucose (NEGATIVE) mg/dL Specimen Received - Progress Progress Note: 08/11/17 14:03 cxr: 1. Right base infiltrate/atelectasis with hemidiaphragm elevation. Correlate clinically. 2. Borderline cardiomegaly without CHF. 08/11/17 14:51 Lasix and rocephin given. CAlled Dr Graves for Buddy. Will admit to IP as he has failed OP treatment. Discussed with : Star Will see patient in: hospital (full admit) Counseled pt/family regarding: lab results, diagnosis, need for follow-up, rad results - Departure Time of Disposition: 14:52 Departure Disposition: In-patient Admission Clinical Impression: RLL pneumonia, Hx of congestive heart failure, Lymphoma Condition: Fair Critical Care Time: No Referrals: DOMINIQUE TORRES MD [Primary Care Provider] -
[2017-08-11 12:47] LABS: Hematocrit 33.4 % (42-50); Mean Cell Volume 112.8 fl (78-100); Mean Corpuscular Hgb Concent. 29.9 g/dl (32-36); Mean Platelet Volume 10.7 fl (6-9.5); Platelet Count 83 K/mm3 (150-450); Red Blood Count 2.96 M/mm3 (4.1-5.6); Red Cell Distribution Width 16.8 % (11.5-14.0)
[2017-08-11 12:56] LABS: Mean Corpuscular Hemoglobin 33.7 pg (26-32); White Blood Count 37.5 K/mm3 (4.0-10.5)
[2017-08-11 13:11] LABS: ALBUMIN 3.5 g/dL (3.5-5.0); ALKALINE PHOSPHATASE 48 U/L (38-126); ANION GAP 11.2 MEQ/L (5-15); BLOOD UREA NITROGEN 17 mg/dL (9-20); CHLORIDE 96 mmol/L (98-107); Calcium 9.1 mg/dL (8.4-10.2); Carbon Dioxide 39 mmol/L (22-30); Creatinine 1 0.92 mg/dL (0.66-1.25); Glucose 128 mg/dL (74-106); Potassium 3.4 mmol/L (3.5-5.1); SGOT/AST 37 U/L (17-59); SGPT/ALT 23 U/L (0-50); SODIUM 142 mmol/L (137-145); Total Protein 5.4 g/dL (6.3-8.2)
[2017-08-11 13:16] LABS: Appearance CLEAR (CLEAR); Glucose NEGATIVE (NEGATIVE); Ketones NEGATIVE (NEGATIVE); Leukocyte Esterase NEGATIVE (NEGATIVE); Nitrite NEGATIVE (NEGATIVE); Protein,Urine Dip NEGATIVE (Negative); Specific Gravity 1.005 (1.005-1.025)
[2017-08-11 13:17] LABS: Bilirubin NEGATIVE (NEGATIVE); Urobilinogen NORMAL mg/dL (0-1)
[2017-08-11 13:20] LABS: NT PRO BNP 351 pg/mL (0-900)
[2017-08-11 13:26] LABS: Bacteria RARE /HPF (NEGATIVE)
--- NOTE | 2017-08-11 13:43 | XRAY ---
Indication: Cough. Comparison: February 24, 2017. PA/lateral chest again demonstrates right base infiltrate/atelectasis with right hemidiaphragm elevation. Faint left midlung fibrosis/scarring. Remaining lungs clear. Heart remains borderline enlarged. Bony thorax intact again with mild osteopenia, degenerative changes, and lower thoracic spinal stimulator leads. Impression: 1. Right base infiltrate/atelectasis with hemidiaphragm elevation. Correlate clinically. 2. Borderline cardiomegaly without CHF.
[2017-08-11 13:52] LABS: INR 1.02 (0.8-3.0)
[2017-08-11 13:54] LABS: PTT 25.7 SECONDS (24.1-36.1)
[2017-08-11 14:29] LABS: BAND 2 % (0.0-2.0); Lymphocytes 90 % (24-44); Neutrophils 8 % (36.-66.); Total Cells Counted 100
[2017-08-11 14:30] LABS: ANISOCYTOSIS 1+
[2017-08-11 14:32] LABS: Platelet Estimate DECREASED (NORMAL); Poikilocytosis 1+; Polychromasia RARE
[2017-08-11] MEDS ORDERED: Lasix 40 MG/4 ML IV ONE (14:44)
[2017-08-11] MEDS ORDERED: ROCEPHIN 1 Gm-D5w 50 ml Bag** 1 G/50 ML IVPB IV STA (14:45)
[2017-08-11] MEDS ORDERED: Lasix 40 MG/4 ML ONE (14:56)
[2017-08-11] MEDS ORDERED: ROCEPHIN 1 Gm-D5w 50 ml Bag** 1 G/50 ML IVPB IV ONE (14:56)
[2017-08-11] MEDS ORDERED: TYLENOL 325 MG PO PRN (15:30)
[2017-08-11] MEDS: DUONEB 0.5-3 MG/3 ml Neb IH SCH ×2 (15:37→19:49)
[2017-08-11] MEDS ORDERED: Zofran 4 MG/2 ML VIAL IV PRN (16:56)
[2017-08-11] MEDS ORDERED: NON-FORMULARY ITEM (Sumatriptan Succinate [Imitrex] 100 MG) PO PRN (17:04)
[2017-08-11] MEDS ORDERED: RISEDRONATE SODIUM 150 MG PO SCH (17:15)
[2017-08-11] MEDS ORDERED: DUONEB 0.5-3 MG/3 ml Neb IH PRN (17:15)
[2017-08-11] MEDS ORDERED: OXYCODONE-ACETAMINOPHEN 10-325 PO PRN (17:18)
[2017-08-11] MEDS: Valium 5 MG PO SCH ×2 (17:21→23:25)
[2017-08-11] MEDS ORDERED: MEDICATION INTERVENTION PO SCH (17:30)
[2017-08-11] MEDS ORDERED: MEDICATION INTERVENTION MC SCH (17:30)
[2017-08-11] MEDS ORDERED: NON-FORMULARY ITEM (Gabapentin [Gabapentin] 800 MG) PO SCH (22:00)
[2017-08-11] MEDS ORDERED: POTASSIUM CITRATE 10 MEQ PO SCH (22:00)
[2017-08-11] MEDS: Klor Con 10 MEQ PO SCH (23:25)
[2017-08-11] MEDS: Neurontin 400 MG PO SCH (23:25)
[2017-08-12] MEDS: DUONEB 0.5-3 MG/3 ml Neb IH SCH ×7 (00:30→23:55)
[2017-08-12] MEDS ORDERED: Ambien 5 MG Tablet PO PRN (08:50)
--- NOTE | 2017-08-12 08:54 | PCM.NOTE ---
Date and Time: 08/12/1751 Subjective Assessment: patient still having a hard time with breathing, coughing and rattling in his chest. was unable to sleep last night Objective Exam General Appearance: no apparent distress, alert Respiratory Exam: crackles/rales, wheezing Cardiovascular Exam: regular rate/rhythm, normal heart sounds Gastrointestinal/Abdomen Exam: soft, No tenderness, No mass Extremity Exam: normal inspection, normal range of motion, pedal edema OBJECTIVE DATA Vital Signs: Vital Signs - 24 hr Temp Pulse Resp BP Pulse Ox 08/12/17 08:06 48 L 16 92 L 08/12/17 07:36 98.4 F 47 L 20 156/71 96 08/12/17 04:00 98.2 F 48 L 18 133/62 94 L 08/12/17 03:00 54 L 18 94 L 08/12/17 00:00 97.9 F 50 L 18 138/68 91 L 08/11/17 23:00 97 H 18 91 L 08/11/17 20:00 97.9 F 50 L 20 133/63 95 08/11/17 19:00 51 L 18 93 L 08/11/17 15:48 47 L 22 93 L 08/11/17 15:30 98.9 F 47 L 22 128/73 93 L 08/11/17 15:06 48 L 22 128/73 98 08/11/17 14:52 95 08/11/17 14:12 56 L 22 156/75 95 08/11/17 13:26 98.9 F 08/11/17 13:25 98.9 F 08/11/17 12:53 48 L 24 127/69 99 08/11/17 12:34 97 08/11/17 12:30 49 L 16 95 08/11/17 12:02 97.6 F 48 L 22 138/68 95 Oxygen-Last 24 hours O2 Percentage 2 Liters = 28% O2 Percentage 2 Liters = 28% O2 Percentage 2 Liters = 28% O2 Percentage 2 Liters = 28% O2 Percentage 2 Liters = 28% O2 Percentage 2 Liters = 28% O2 Percentage 2 Liters = 28% O2 Percentage 2 Liters = 28% Pain Assessment - Last Documented Pain Intensity 0 Pain Scale Used 0-10 Pain Scale,FLACC Intake and Output: Intake & Output 08/09/17 08/10/17 08/11/17 08/12/17 11:59 11:59 11:59 11:59 Intake Total 960 Balance 960 Weight 109 kg Assessment/Plan (1) RLL pneumonia Current Visit: Yes Status: Acute Assessment & Plan: on rocephin and zithromax, failed outpatient therapy with levaquin Code(s): J18.1 - LOBAR PNEUMONIA, UNSPECIFIED ORGANISM (2) Hx of congestive heart failure Current Visit: Yes Status: Acute Code(s): Z86.79 - PERSONAL HISTORY OF OTHER DISEASES OF THE CIRCULATORY SYSTEM (3) CLL (chronic lymphocytic leukemia) Current Visit: No Status: Chronic Code(s): C91.10 - CHRONIC LYMPHOCYTIC LEUK OF B-CELL TYPE NOT ACHIEVE REMIS (4) Chronic back pain Current Visit: No Status: Chronic Assessment & Plan: has a pain pump in situ Code(s): M54.9 - DORSALGIA, UNSPECIFIED; G89.29 - OTHER CHRONIC PAIN
[2017-08-12] MEDS ORDERED: NON-FORMULARY ITEM (Celecoxib [Celebrex] 200 MG) PO SCH (10:00)
[2017-08-12] MEDS ORDERED: NON-FORMULARY ITEM (Aspirin [Aspirin] 81 MG) PO SCH (10:00)
--- NOTE | 2017-08-12 10:01 | HP ---
HISTORY OF PRESENT ILLNESS: This is a 71 year-old patient of Dr. Goodwin who presented to the emergency department. The patient reports he has had worsening symptoms x2 weeks with cough, gurgling and wheezing. He reports the cough is nonproductive. He denies any fever. He was on [employer] on 08/08/2017 and given Levaquin 500 mg p.o. daily which he has been taking and reports that his symptoms have actually gotten worse. He reports one night he vomited. He has had a good appetite. He reports seeing some blood on the floor of the shower this morning but not being sure where that came from. REVIEW OF SYSTEMS: He denies any chest pain. He has had some constipation. He has had a funny feeling at the end of his penis which he thought may be passing a stone. Otherwise review of systems is as mentioned in the history of present illness. PAST MEDICAL HISTORY: Chronic lymphocytic leukemia (CLL) which he sees Dr. Dos Santos for. Chronic obstructive pulmonary disease. Kidney stones. Depression. Anxiety. Desmin myopathy. History of stage I bladder cancer. Asthma. Congestive heart failure. Migraine. PAST SURGICAL HISTORY: Hernia repair. Knee surgery. Dilaudid pain pump in his back. He had a TENS unit that was removed and replaced with pain pump. Back surgery x2 to 3. Prostate surgery. Bladder cancer surgery. HOME MEDICATIONS: DuoNeb 3 ml inhaled four times a day, Allopurinol 300 mg p.o. daily, aspirin 81 mg p.o. daily, Celebrex 200 mg p.o. daily, Pristiq 100 mg p.o. daily, Valium 2.5 mg at dinner time and bedtime for spasms in his legs. Vitamin D 50,000 units p.o. weekly, gabapentin 800 mg p.o. t.i.d., hydrochlorothiazide 25 mg p.o. daily, Dilaudid pain pump in his back that releases medicine continuously, Ibrutinib 140 mg capsule 3 capsules p.o. daily this is chemotherapy. Biofreeze as directed on his leg. Oxycodone/acetaminophen 10/325 mg 15 mg p.o. every six hours as needed, potassium chloride 10 mEq p.o. b.i.d., potassium citrate 10 mEq p.o. b.i.d., prednisone 10 mg p.o. daily, Actonel 150 mg p.o. monthly not due until August. His reports Imitrex 100 mg p.o. daily as needed for migraines, Torsemide 20 mg p.o. daily. ALLERGIES: BACLOFEN, CYCLOBENZAPRINE, PENICILLIN, TIZANIDINE, FENTANYLL. SOCIAL HISTORY: He is and lives with his . He denies any alcohol. He has never smoked. FAMILY HISTORY: Noncontributory. PHYSICAL EXAMINATION: VITAL SIGNS: Temperature current 98.9F, temperature max 98.9F, heart rate 48 to 56, respiratory rate 16 to 22, blood pressure 128 to 157 over 68 to 75, weight 109 kg. Oxygen saturation 93 to 98% on 2 liters. GENERAL: The patient is sitting up in bed a pleasant talkative man in no acute distress. His is at the bedside. CVS: Bradycardic with regular rhythm. No murmurs, gallops or rubs are appreciated. CHEST: He has fine crackles spread throughout, equal breath sounds. No wheezing. ABDOMEN: Hepatomegaly appears to be large about 20 cm below the costophrenic margin. Pain pump in place on the left side of his abdomen. Normal bowel sounds. No tenderness. EXTREMITIES: +1 edema to his mid shins bilaterally. No clubbing or cyanosis. He has multiple bruises on his abdomen. LABORATORY DATA AND TESTS: White blood cell count 37,500, hemoglobin 10, PLT count 83,000. Differential 90% lymphocytes. Potassium 3.4, chloride 96, glucose 128, lactic acid 2.5, serum protein 5.4. UA revealed 0-2 red blood cells, rare bacteria. He has blood cultures in lab. Chest x-ray was read as possible right lower lobe base infiltrate, borderline cardiomegaly without congestive heart failure. Please see the radiologist dictation for the full report. EKG with sinus bradycardia with heart rate of 47. ASSESSMENT AND PLAN: 1) RIGHT LOWER LOBE PNEUMONIA: He has been started on ceftriaxone and will continue with this and oxygen as needed. 2) HISTORY OF CHRONIC OBSTRUCTIVE PULMONARY DISEASE: Will continue with breathing treatments, oxygen as needed. 3) CHRONIC LYMPHOCYTIC LEUKEMIA (CLL): His has brought his oral chemotherapy and would like to continue this during his hospitalization so this has been reordered. 4) DESMIN-MYOPATHY: Will continue with his home medications. 5) DEEP VENOUS THROMBOSIS PROPHYLAXIS: Will use SCD and ASHLEY hose. 6) CODE STATUS: I discussed with him and he does not want to have any heroic measures taken. He does not want chest compressions done or be placed on a ventilator if his heart were to stop beating or if he would stop breathing.
[2017-08-12] MEDS: PRISTIQ ER PO SCH (11:49)
[2017-08-12] MEDS: Klor Con 10 MEQ PO SCH ×2 (11:49→21:28)
[2017-08-12] MEDS: hydroDIURIL 25 MG PO SCH (11:50)
[2017-08-12] MEDS: ZYLOPRIM 300 MG PO SCH (11:50)
[2017-08-12] MEDS: ROCEPHIN 1 Gm-D5w 50 ml Bag** 1 G/50 ML IVPB IV SCH (11:50)
[2017-08-12] MEDS: ECOTRIN 81 MG PO SCH (11:50)
[2017-08-12] MEDS: DELTASONE 10 MG PO SCH (11:50)
[2017-08-12] MEDS: celeBREX 100 MG PO SCH (11:50)
[2017-08-12] MEDS: Neurontin 400 MG PO SCH ×3 (11:50→21:28)
[2017-08-12] MEDS: DEMADEX 20 MG PO SCH (12:01)
[2017-08-12] MEDS: PATIENT OWN MEDICATION PO SCH (12:34)
[2017-08-12] MEDS ORDERED: MEDICATION INTERVENTION PO SCH (13:30)
[2017-08-12] MEDS: Valium 5 MG PO SCH ×2 (17:17→21:28)
[2017-08-13] MEDS: DUONEB 0.5-3 MG/3 ml Neb IH SCH ×6 (03:21→23:37)
[2017-08-13 05:47] LABS: Hematocrit 32.2 % (42-50); Hemoglobin 9.7 gm/dl (12.5-18.0); Mean Cell Volume 112.2 fl (78-100); Mean Corpuscular Hgb Concent. 30.1 g/dl (32-36); Mean Platelet Volume 10.5 fl (6-9.5); Platelet Count 91 K/mm3 (150-450); Red Blood Count 2.87 M/mm3 (4.1-5.6); Red Cell Distribution Width 16.5 % (11.5-14.0)
[2017-08-13 05:51] LABS: Mean Corpuscular Hemoglobin 33.7 pg (26-32)
[2017-08-13 05:52] LABS: Granulocyte Absolute (ANC) 2.53 (1.4-6.9)
[2017-08-13 06:10] LABS: ALBUMIN 3.3 g/dL (3.5-5.0); ALKALINE PHOSPHATASE 43 U/L (38-126); BLOOD UREA NITROGEN 22 mg/dL (9-20); CHLORIDE 94 mmol/L (98-107); Calcium 8.9 mg/dL (8.4-10.2); Carbon Dioxide 40 mmol/L (22-30); Creatinine 1 0.75 mg/dL (0.66-1.25); Glucose 100 mg/dL (74-106); SGOT/AST 21 U/L (17-59); SGPT/ALT 17 U/L (0-50); SODIUM 141 mmol/L (137-145); Total Protein 5.3 g/dL (6.3-8.2)
[2017-08-13 06:12] LABS: NT PRO BNP 146 pg/mL (0-900)
[2017-08-13 06:20] LABS: Potassium 2.6 mmol/L (3.5-5.1)
[2017-08-13] MEDS ORDERED: Sodium Chloride 0.9% 1000 ML 1,000 ML IV SCH (06:45)
[2017-08-13] MEDS: POTASSIUM CHLORIDE 20 mEq IN WATER 100ML 20 MEQ/100 ML BAG IV SCH ×2 (06:49→09:30)
[2017-08-13 07:38] LABS: Lymphocytes 98 % (24-44); Neutrophils 2 % (36.-66.); Total Cells Counted 100
[2017-08-13 07:39] LABS: ANISOCYTOSIS 2+; Poikilocytosis 1+
[2017-08-13 07:40] LABS: Platelet Estimate NORMAL (NORMAL)
--- NOTE | 2017-08-13 09:08 | PCM.NOTE ---
Date and Time: 08/13/17906 Subjective Assessment: Remy is feeling better today, cough is improved. he feels weak but otherwise seems to be doing much better. Objective Exam General Appearance: no apparent distress, alert Neurologic Exam: alert, oriented x 3 Skin Exam: normal color, warm, dry Respiratory Exam: normal breath sounds, lungs clear, No respiratory distress Cardiovascular Exam: regular rate/rhythm, normal heart sounds Gastrointestinal/Abdomen Exam: soft, No tenderness, No mass OBJECTIVE DATA Vital Signs: Vital Signs - 24 hr Temp Pulse Resp BP Pulse Ox 08/13/17 08:00 18 08/13/17 07:08 98.6 F 45 L 18 122/59 93 L 08/13/17 06:48 48 L 16 93 L 08/13/17 04:00 98.7 F 51 L 14 128/60 94 L 08/13/17 03:22 48 L 16 96 08/13/17 00:00 98.5 F 50 L 16 132/67 94 L 08/12/17 23:55 50 L 16 94 L 08/12/17 20:00 97.8 F 53 L 16 138/70 92 L 08/12/17 19:36 50 L 18 93 L 08/12/17 16:00 98.1 F 55 L 18 152/72 92 L 08/12/17 14:48 60 20 08/12/17 12:00 97.9 F 63 18 142/67 92 L 08/12/17 11:31 56 L 16 Oxygen-Last 24 hours O2 Percentage 2 Liters = 28% O2 Percentage 2 Liters = 28% O2 Percentage 2 Liters = 28% O2 Percentage 2 Liters = 28% Pain Assessment - Last Documented Pain Intensity 0 Pain Scale Used 0-10 Pain Scale Intake and Output: Intake & Output 08/10/17 08/11/17 08/12/17 08/13/17 11:59 11:59 11:59 11:59 Intake Total 1200 960 Balance 1200 960 Weight 109 kg Lab Results: Lab Results-Last 24 Hours 08/13/17 08/13/17 Range/Units 05:20 05:20 WBC 34.0 H* (4.0-10.5) K/mm3 RBC 2.87 L (4.1-5.6) M/mm3 Hgb 9.7 L (12.5-18.0) gm/dl Hct 32.2 L (42-50) % MCV 112.2 H (78-100) fl MCH 33.7 H (26-32) pg MCHC 30.1 L (32-36) g/dl RDW 16.5 H (11.5-14.0) % Plt Count 91 L (150-450) K/mm3 MPV 10.5 H (6-9.5) fl Segmented Neutrophils 2 L (36.-66.) % Lymphocytes (Manual) 98 H (24-44) % Differential Comment ABNORMAL Platelet Estimate NORMAL (NORMAL) Poikilocytosis 1+ Anisocytosis 2+ Sodium 141 (137-145) mmol/L Potassium 2.6 L* (3.5-5.1) mmol/L Chloride 94 L (98-107) mmol/L Carbon Dioxide 40 H (22-30) mmol/L Anion Gap 10.0 (5-15) MEQ/L BUN 22 H (9-20) mg/dL Creatinine 0.75 (0.66-1.25) mg/dL Estimated GFR > 60 ML/MIN Glucose 100 (74-106) mg/dL Calcium 8.9 (8.4-10.2) mg/dL Total Bilirubin 0.30 (0.2-1.3) mg/dL AST 21 (17-59) U/L ALT 17 (0-50) U/L Alkaline Phosphatase 43 (38-126) U/L NT-Pro-B Natriuret Pep 146 (0-900) pg/mL Serum Total Protein 5.3 L (6.3-8.2) g/dL Albumin 3.3 L (3.5-5.0) g/dL Assessment/Plan (1) RLL pneumonia Current Visit: Yes Status: Acute Assessment & Plan: improved, if lytes are normal tomorrow may d/c to home. has chronic elevation of WBC related to CLL Code(s): J18.1 - LOBAR PNEUMONIA, UNSPECIFIED ORGANISM (2) Hx of congestive heart failure Current Visit: Yes Status: Acute Code(s): Z86.79 - PERSONAL HISTORY OF OTHER DISEASES OF THE CIRCULATORY SYSTEM (3) CLL (chronic lymphocytic leukemia) Current Visit: No Status: Chronic Code(s): C91.10 - CHRONIC LYMPHOCYTIC LEUK OF B-CELL TYPE NOT ACHIEVE REMIS (4) Chronic back pain Current Visit: No Status: Chronic Code(s): M54.9 - DORSALGIA, UNSPECIFIED; G89.29 - OTHER CHRONIC PAIN (5) Hypokalemia Current Visit: Yes Status: Acute Assessment & Plan: being replaced at this time, home when electrolytes are normalized Code(s): E87.6 - HYPOKALEMIA
[2017-08-13] MEDS: ROCEPHIN 1 Gm-D5w 50 ml Bag** 1 G/50 ML IVPB IV SCH (09:57)
[2017-08-13] MEDS: Neurontin 400 MG PO SCH ×3 (10:01→21:24)
[2017-08-13] MEDS: hydroDIURIL 25 MG PO SCH (10:01)
[2017-08-13] MEDS: DELTASONE 10 MG PO SCH (10:01)
[2017-08-13] MEDS: celeBREX 100 MG PO SCH (10:01)
[2017-08-13] MEDS: PRISTIQ ER PO SCH (10:01)
[2017-08-13] MEDS: Klor Con 10 MEQ PO SCH ×2 (10:01→21:24)
[2017-08-13] MEDS: ZYLOPRIM 300 MG PO SCH (10:01)
[2017-08-13] MEDS: ECOTRIN 81 MG PO SCH (10:02)
[2017-08-13] MEDS: PATIENT OWN MEDICATION PO SCH (10:03)
[2017-08-13] MEDS: DEMADEX 20 MG PO SCH (10:05)
[2017-08-13] MEDS ORDERED: MENTHOL TOP SCH (11:45)
[2017-08-13] MEDS ORDERED: OXYCODONE-ACETAMINOPHEN 10-325 PO SCH (11:45)
[2017-08-13] MEDS ORDERED: PATIENT OWN MEDICATION IJ PRN (13:00)
[2017-08-13] MEDS: Valium 5 MG PO SCH ×2 (16:54→21:25)
[2017-08-14] MEDS: DUONEB 0.5-3 MG/3 ml Neb IH SCH ×4 (03:44→15:19)
[2017-08-14 05:52] LABS: Hematocrit 32.6 % (42-50); Hemoglobin 9.6 gm/dl (12.5-18.0); Mean Cell Volume 111.6 fl (78-100); Mean Corpuscular Hgb Concent. 29.4 g/dl (32-36); Mean Platelet Volume 10.8 fl (6-9.5); Platelet Count 101 K/mm3 (150-450); Red Blood Count 2.92 M/mm3 (4.1-5.6); Red Cell Distribution Width 16.4 % (11.5-14.0)
[2017-08-14 06:11] LABS: Mean Corpuscular Hemoglobin 32.8 pg (26-32); White Blood Count 38.9 K/mm3 (4.0-10.5)
[2017-08-14 06:12] LABS: Granulocyte Absolute (ANC) 2.36 (1.4-6.9)
[2017-08-14 06:51] LABS: Lymphocytes 92 % (24-44); Monocyte 2 % (0.0-12.0); Neutrophils 6 % (36.-66.); Total Cells Counted 100
[2017-08-14 06:52] LABS: ANISOCYTOSIS 2+; Platelet Estimate NORMAL (NORMAL); Poikilocytosis 1+
[2017-08-14 07:59] LABS: ANION GAP 10.1 MEQ/L (5-15); BLOOD UREA NITROGEN 24 mg/dL (9-20); CHLORIDE 95 mmol/L (98-107); Calcium 8.8 mg/dL (8.4-10.2); Carbon Dioxide 39 mmol/L (22-30); Creatinine 1 0.76 mg/dL (0.66-1.25); Glucose 90 mg/dL (74-106); SODIUM 142 mmol/L (137-145)
[2017-08-14 08:05] LABS: Potassium 2.7 mmol/L (3.5-5.1)
[2017-08-14] MEDS: POTASSIUM CHLORIDE 20 mEq IN WATER 100ML 20 MEQ/100 ML BAG IV SCH ×2 (09:07→11:15)
[2017-08-14] MEDS: hydroDIURIL 25 MG PO SCH (09:13)
[2017-08-14] MEDS: Klor Con 10 MEQ PO SCH ×2 (09:13→15:16)
[2017-08-14] MEDS: Neurontin 400 MG PO SCH ×2 (09:13→15:16)
[2017-08-14] MEDS: PRISTIQ ER PO SCH (09:13)
[2017-08-14] MEDS: ECOTRIN 81 MG PO SCH (09:14)
[2017-08-14] MEDS: celeBREX 100 MG PO SCH (09:14)
[2017-08-14] MEDS: ROCEPHIN 1 Gm-D5w 50 ml Bag** 1 G/50 ML IVPB IV SCH (09:14)
[2017-08-14] MEDS: DELTASONE 10 MG PO SCH (09:14)
[2017-08-14] MEDS: DEMADEX 20 MG PO SCH (09:14)
[2017-08-14] MEDS: PATIENT OWN MEDICATION PO SCH (09:14)
[2017-08-14] MEDS: ZYLOPRIM 300 MG PO SCH (09:14)
[2017-08-14] MEDS ORDERED: IBRUTINIB PO SCH (10:00)
[2017-08-14 15:32] VITALS: O2SAT 95
[2017-08-14 16:07] VITALS: BP 144/66; PULSE 52
[2017-08-18] MEDS ORDERED: VITAMIN D2 PO SCH (10:00)
[2017-08-24] MEDS ORDERED: ACTONEL 35 MG PO SCH (06:00)
== END 2017-08-14 17:00 | disposition home or self-care (01) | DRG 194 ==
LOC: ED 11:53 → MED SURG 15:15
PROVIDERS: ADMIT Internal Medicine; ATTEND Family Medicine
DX: J18.9 Pneumonia, unspecified organism (principal); C85.90 Non-Hodgkin lymphoma, unspecified, unspecified site; C91.10 Chronic lymphocytic leukemia of B-cell type not having achieved remission; F03.90 Unspecified dementia, unspecified severity, without behavioral disturbance, psychotic disturbance, mood disturbance, and anxiety; J44.9 Chronic obstructive pulmonary disease, unspecified; G72.89 Other specified myopathies; K76.9 Liver disease, unspecified; K21.9 Gastro-esophageal reflux disease without esophagitis; Z87.442 Personal history of urinary calculi; F41.8 Other specified anxiety disorders; G72.9 Myopathy, unspecified; Z85.828 Personal history of other malignant neoplasm of skin; Z79.899 Other long term (current) drug therapy; Z85.51 Personal history of malignant neoplasm of bladder; I50.9 Heart failure, unspecified; J45.909 Unspecified asthma, uncomplicated; Z86.79 Personal history of other diseases of the circulatory system; M54.9 Dorsalgia, unspecified; G89.29 Other chronic pain; E87.6 Hypokalemia
CPT/HCPCS: 36000; 36415; 71046; 80048; 80053; 81000; 83605; 83735; 83880; 84132; 85025; 85610; 85730; 87040; 93005; 93041; 94150; 94640; 94760; 96360; 96361; 96374; 99285; J0696; J1940; J3480; A9270-GY

== ENCOUNTER 2017-08-21 11:27 | Emergency (ER) | payer MEDICARE, BC ==
--- NOTE | 2017-08-21 12:04 | ERPHSYRPT ---
- History of Present Illness Time Seen by Provider: 08/21/17 11:59 Source: patient Exam Limitations: no limitations Patient Subjective Stated Complaint: pt co dizziness and low o2 sat marielle home, states is lightheaded and room spins when moves Triage Nursing Assessment: pt alert, resp labored with excertion, no cough, no fever, headache . pt states he fell this morning, landed face down , no loc, no injury from fall Physician History: The patient is a 71-year-old male brought in by his from home complaining that he became dizzy upon sitting up out of his chair it's morning and then passing out and falling to the floor. He is a poor historian. He states that he was dizzy and was not having the right balance. But he does not recall striking the floor. He denies any chest pain or head pain. He says he feels "yucky". He was recently hospitalized on August 11 to the for pneumonia. He is no longer taking antibiotics. He states he gets dizzy about once a week since he began chemotherapy for chronic lymphocytic leukemia about 3 weeks ago. He is unsure of what times a day it is. His past medical history is significant for recent pneumonia, CLL, congestive heart failure, migraine headaches, gout, and chronic pain. Timing/Duration: today Severity: moderate Modifying Factors: Improves With: movement Associated Symptoms: syncope Allergies/Adverse Reactions: baclofen Allergy (Verified 08/21/17 11:39) weakness cyclobenzaprine [From Flexeril] Allergy (Verified 08/21/17 11:39) walks like he is drunk Penicillins Allergy (Verified 08/21/17 11:39) rash tizanidine [From Zanaflex] Allergy (Verified 08/21/17 11:39) weakness fentanyl Adverse Reaction (Intermediate, Verified 08/21/17 11:39) Caused hallucinations, agitation, confrontation. Home Medications: Allopurinol 300 mg [Zyloprim 300 mg] 300 mg PO DAILY 02/20/16 [History] Aspirin 81 mg PO DAILY 02/20/16 [History] Celecoxib [Celebrex] 200 mg PO DAILY 02/20/16 [History] Gabapentin 1,200 mg PO EVENING MEAL 02/20/16 [History] Gabapentin 800 mg PO HS 02/20/16 [History] Hydrochlorothiazide 25 mg [hydroDIURIL 25 MG] 25 mg PO DAILY 02/20/16 [ History] Prednisone 10 mg [Deltasone 10 mg] 10 mg PO DAILY 02/20/16 [History] Risedronate Sodium [Actonel] 150 mg PO UD 02/20/16 [History] Sumatriptan Succinate [Imitrex] 100 mg PO DAILY PRN 04/13/16 [History] Desvenlafaxine Succinate [Pristiq ER] 100 mg PO DAILY 02/24/17 [History] Diazepam 5 mg [Valium 5 MG] 2.5 mg PO UD 02/24/17 [History] Albuterol/Ipratropium 3ml Neb* [DUONEB 0.5-3 MG/3 ml Neb] 3 ml IH QID PRN 09/09 [History] Ergocalciferol (Vitamin D2) [Vitamin D] 50,000 units PO WEEKLY 06/28/17 [History ] Furosemide 40 mg PO DAILY 06/28/17 [History] Potassium Chloride 10 Meq Tab* [Klor Con 10 MEQ] 10 meq PO BID 06/28/17 [ History] Potassium Citrate [Urocit-K] 10 meq PO BID 06/28/17 [History] Hydromorphone HCl [Dilaudid] 1 dose IN UD 08/11/17 [History] Ibrutinib [Imbruvica] 3 cap PO DAILY 08/11/17 [History] Menthol [Biofreeze] 1 ml TOP QID PRN PRN 08/11/17 [History] Oxycodone HCl/Acetaminophen [Percocet 10-325 mg Tablet] 15 mg PO Q4H PRN PRN [History] Hx Tetanus, Diphtheria Vaccination/Date Given: No Hx Influenza Vaccination/Date Given: Yes Hx Pneumococcal Vaccination/Date Given: Yes Immunizations Up to Date: Yes - Review of Systems Constitutional: No Fever, No Chills Eyes: No Symptoms Ears, Nose, & Throat: No Symptoms Respiratory: No Cough, No Dyspnea Cardiac: No Chest Pain, No Edema, No Syncope Abdominal/Gastrointestinal: No Abdominal Pain, No Nausea, No Vomiting, No Diarrhea Genitourinary Symptoms: No Dysuria Musculoskeletal: Fall Skin: No Rash Neurological: Dizziness Psychological: No Symptoms Endocrine: No Symptoms Hematologic/Lymphatic: No Symptoms Immunological/Allergic: No Symptoms All Other Systems: Reviewed and Negative - Past Medical History Pertinent Past Medical History: Yes Neurological History: Dementia, Migraines ENT History: No Pertinent History Cardiac History: Aneurysm, Congestive Heart Failure Respiratory History: Asthma, COPD Endocrine Medical History: Liver Disease Musculoskeletal History: Other GI Medical History: GERD History: Bladder Cancer Psycho-Social History: Anxiety, Depression Male Reproductive Disorders: Other Other Medical History: desmin myopathy - Past Surgical History Past Surgical History: Yes Neuro Surgical History: No Pertinent History Cardiac: No Pertinent History Respiratory: No Pertinent History Gastrointestinal: Hernia Repair Genitourinary: No Pertinent History Musculoskeletal: Orthopedic Surgery Male Surgical History: No Pertinent History Other Surgical History: PAIN PUMP. IMPLANTED TENS UNIT--THEN PAIN PUMP. BACK SURGERY multiple. prostate surgery. skin CA benign. TURPB. bladder ca removal. leison removed from lip and right ear - Social History Smoking Status: Former smoker Exposure to second hand smoke: No Drug Use: none Patient Lives Alone: No - Nursing Vital Signs Nursing Vital Signs: Initial Vital Signs O2 Sat by Pulse Oximetry 95 08/21/17 12:12 Pain Scale Pain Intensity 8 - Physical Exam General Appearance: mild distress Eye Exam: PERRL/EOMI, eyes nml inspection Ears, Nose, Throat Exam: normal ENT inspection, TMs normal, pharynx normal, dry mucous membranes Neck Exam: normal inspection, non-tender, supple, full range of motion Respiratory Exam: normal breath sounds, lungs clear, No respiratory distress Cardiovascular Exam: regular rate/rhythm, normal heart sounds, normal peripheral pulses, No edema Gastrointestinal/Abdomen Exam: soft, normal bowel sounds, No tenderness, No mass Rectal Exam: not done Back Exam: normal inspection, normal range of motion, No CVA tenderness, No vertebral tenderness Extremity Exam: normal inspection, normal range of motion, pelvis stable Neurologic Exam: alert, oriented x 3, cooperative, normal mood/affect, nml cerebellar function, nml station & gait, sensation nml, No motor deficits Skin Exam: normal color, warm, dry, No rash Lymphatic Exam: No adenopathy SpO2 Interpretation: normal Oxygen Delivery: Room Air - Course EKG Interpreted by Me: RATE, Sinus Rhythm, NORMAL AXIS, NORMAL INTERVALS, NORMAL QRS, NORMAL ST-T, Other (no change compared to EKG 08/11/17.) - Radiology Exams Chest X-ray Interpretation: Reviewed by me, Teleradiologist Report, Infiltrates ( again with right base infiltrate/atelecstasis per Dr Calixto.) - CT Exams Head CT Interpretation: Tele-radiologist Report, Other (new tiny left parietal subdural hematoma without mass effect per DR Calixto.) Ordered Tests: Active Orders 24 hr Category Date Time Status Systems Analyst Engineer STAT Care 08/21/17 12:07 Active EKG-ER Only STAT Care 08/21/17 12:05 Active IV Insertion STAT Care 08/21/17 12:05 Active Orthostatic Vital Signs STAT Care 08/21/17 12:05 Active Oxygen-ED Only NASAL CANNULA 2 lpm Care 08/21/17 12:05 Active Pulse Oximetry (ED) STAT Care 08/21/17 12:05 Active CHEST 1 VIEW (PORTABLE) Stat Exams 08/21/17 12:06 Completed HEAD WITHOUT CONTRAST [CT] Stat Exams 08/21/17 12:07 Completed BLOOD CULTURE Stat Lab 08/21/17 12:35 Received CBC W DIFF Stat Lab 08/21/17 11:45 Completed CMP Stat Lab 08/21/17 11:45 Completed CMP Stat Lab 08/21/17 13:05 Ordered Manual Differential NC Stat Lab 08/21/17 11:45 Completed NT PRO BNP Stat Lab 08/21/17 11:45 Completed PROTIME WITH INR Stat Lab 08/21/17 11:45 Completed TROPONIN Q3H Lab 08/21/17 11:45 Completed TROPONIN Q3H Lab 08/21/17 15:15 Ordered TROPONIN Q3H Lab 08/21/17 18:15 Ordered TROPONIN Q3H Lab 08/21/17 21:15 Ordered TROPONIN Q3H Lab 08/22/17 00:15 Ordered UA W/RFX UR CULTURE Stat Lab 08/21/17 12:06 Ordered Medication Summary Discontinued Medications Generic Name Dose Route Start Last Admin Trade Name Freq PRN Reason Stop Dose Admin Sodium Chloride 1,000 mls @ 999 mls/hr 08/21/17 12:05 08/21/17 12:17 Sodium Chloride 0.9% 1000 Ml IV 08/21/17 13:05 999 mls/hr .Q1H1M STA Administration Sodium Chloride Confirm 08/21/17 12:16 Sodium Chloride 0.9% 1000 Ml Administered 03/30/18 12:17 Dose 1,000 mls @ .ROUTE .STK-MED ONE Lab/Rad Data: Laboratory Result Diagrams 08/21/17 11:45 08/21/17 11:45 Laboratory Results 08/21/17 08/21/17 08/21/17 Range/Units 11:45 11:45 11:45 WBC (4.0-10.5) K/mm3 RBC (4.1-5.6) M/mm3 Hgb (12.5-18.0) gm/dl Hct (42-50) % MCV (78-100) fl MCH (26-32) pg MCHC (32-36) g/dl RDW (11.5-14.0) % Plt Count (150-450) K/mm3 MPV (6-9.5) fl Absolute Granulocytes (1.4-6.9) Segmented Neutrophils (36.-66.) % Band Neutrophils (0.0-2.0) % Lymphocytes (Manual) (24-44) % Monocytes (Manual) (0.0-12.0) % Differential Comment Platelet Estimate (NORMAL) Polychromasia Poikilocytosis Anisocytosis PT 14.2 H (8.83-12.87) SECONDS INR 1.27 (0.8-3.0) Sodium (137-145) mmol/L Potassium (3.5-5.1) mmol/L Chloride (98-107) mmol/L Carbon Dioxide (22-30) mmol/L Anion Gap (5-15) MEQ/L BUN (9-20) mg/dL Creatinine (0.66-1.25) mg/dL Estimated GFR ML/MIN Glucose (74-106) mg/dL Calcium (8.4-10.2) mg/dL Total Bilirubin (0.2-1.3) mg/dL AST (17-59) U/L ALT (0-50) U/L Alkaline Phosphatase (38-126) U/L Troponin I 0.018 (0.000-0.034) ng/mL NT-Pro-B Natriuret Pep (0-900) pg/mL Serum Total Protein (6.3-8.2) g/dL Albumin (3.5-5.0) g/dL Influenza Type A Ag NEGATIVE (NEGATIVE) Influenza Type B Ag NEGATIVE (NEGATIVE) RSV (PCR) NEGATIVE (Negative) 08/21/17 08/21/17 Range/Units 11:45 11:45 WBC 46.9 H* (4.0-10.5) K/mm3 RBC 3.25 L (4.1-5.6) M/mm3 Hgb 11.0 L (12.5-18.0) gm/dl Hct 35.9 L (42-50) % MCV 110.5 H (78-100) fl MCH 33.8 H (26-32) pg MCHC 30.6 L (32-36) g/dl RDW 16.5 H (11.5-14.0) % Plt Count 139 L (150-450) K/mm3 MPV 11.2 H (6-9.5) fl Absolute Granulocytes 11.84 H (1.4-6.9) Segmented Neutrophils 14 L (36.-66.) % Band Neutrophils 5 H (0.0-2.0) % Lymphocytes (Manual) 76 H (24-44) % Monocytes (Manual) 5 (0.0-12.0) % Differential Comment ABNORMAL Platelet Estimate NORMAL (NORMAL) Polychromasia 1+ Poikilocytosis 1+ Anisocytosis 2+ PT (8.83-12.87) SECONDS INR (0.8-3.0) Sodium 139 (137-145) mmol/L Potassium 3.5 (3.5-5.1) mmol/L Chloride 94 L (98-107) mmol/L Carbon Dioxide 36 H (22-30) mmol/L Anion Gap 12.1 (5-15) MEQ/L BUN 16 (9-20) mg/dL Creatinine 0.83 (0.66-1.25) mg/dL Estimated GFR > 60 ML/MIN Glucose 110 H (74-106) mg/dL Calcium 9.0 (8.4-10.2) mg/dL Total Bilirubin 0.90 (0.2-1.3) mg/dL AST 17 (17-59) U/L ALT 15 (0-50) U/L Alkaline Phosphatase 46 (38-126) U/L Troponin I (0.000-0.034) ng/mL NT-Pro-B Natriuret Pep 450 (0-900) pg/mL Serum Total Protein 6.0 L (6.3-8.2) g/dL Albumin 3.6 (3.5-5.0) g/dL Influenza Type A Ag (NEGATIVE) Influenza Type B Ag (NEGATIVE) RSV (PCR) (Negative) - Progress Progress: unchanged Counseled pt/family regarding: lab results, diagnosis, rad results - Departure Time of Disposition: 13:00 Departure Disposition: Transfer (Transfer to [facility] per Dr Luong.) Clinical Impression: Subdural hematoma Condition: Stable Critical Care Time: No Referrals: DOMINIQUE TORRES MD [Primary Care Provider] -
[2017-08-21] MEDS ORDERED: Sodium Chloride 0.9% 1000 ML 1,000 ML IV STA (12:05)
[2017-08-21] MEDS ORDERED: Sodium Chloride 0.9% 1000 ML 1,000 ML ONE (12:16)
[2017-08-21 12:23] LABS: Granulocyte Absolute (ANC) 11.84 (1.4-6.9); Hematocrit 35.9 % (42-50); Mean Cell Volume 110.5 fl (78-100); Mean Corpuscular Hemoglobin 33.8 pg (26-32); Mean Corpuscular Hgb Concent. 30.6 g/dl (32-36); Mean Platelet Volume 11.2 fl (6-9.5); Platelet Count 139 K/mm3 (150-450); Red Blood Count 3.25 M/mm3 (4.1-5.6); Red Cell Distribution Width 16.5 % (11.5-14.0)
[2017-08-21 12:28] LABS: White Blood Count 46.9 K/mm3 (4.0-10.5)
[2017-08-21 12:39] LABS: INR 1.27 (0.8-3.0)
[2017-08-21 12:44] LABS: ALBUMIN 3.6 g/dL (3.5-5.0); ALKALINE PHOSPHATASE 46 U/L (38-126); ANION GAP 12.1 MEQ/L (5-15); BLOOD UREA NITROGEN 16 mg/dL (9-20); CHLORIDE 94 mmol/L (98-107); Carbon Dioxide 36 mmol/L (22-30); Creatinine 1 0.83 mg/dL (0.66-1.25); Glucose 110 mg/dL (74-106); Potassium 3.5 mmol/L (3.5-5.1); SGOT/AST 17 U/L (17-59); SODIUM 139 mmol/L (137-145)
--- NOTE | 2017-08-21 12:47 | XRAY ---
Indication: Dizziness. Possible head injury. Multiple contiguous axial images obtained through the head without contrast. Comparison: September 24, 2016. Stable age-appropriate global atrophy and minimal periventricular degenerative micro-ischemia. New 3 mm thin left subdural hemorrhage near the left vertex at least 3 cm long. No mass effect. Fourth ventricle is midline without hydrocephalus. Bony calvarium intact. Minimal mucosal thickening of both ethmoid and floor of the left maxillary sinus. Mastoid air cells are clear. Impression: 1. New tiny left parietal subdural hemorrhage as detailed. 2. Stable normal aging brain. 3. Minimal paranasal sinus disease. CT DI 50.26
[2017-08-21 12:51] LABS: SGPT/ALT 15 U/L (0-50)
[2017-08-21 12:53] LABS: NT PRO BNP 450 pg/mL (0-900)
--- NOTE | 2017-08-21 12:54 | XRAY ---
Indication: Dizziness. Comparison: August 11, 2017. Portable apical lordotic chest less inflated again with right base infiltrate/atelectasis unchanged. Query new subtle left base infiltrate/atelectasis/effusion. Heart is not enlarged. Remaining chest unremarkable.
[2017-08-21 12:56] LABS: INFLUENZA A NEGATIVE (NEGATIVE); INFLUENZA B NEGATIVE (NEGATIVE); RESPIRATORY SYNCTIAL VIRUS NEGATIVE (Negative)
[2017-08-21 12:59] LABS: BAND 5 % (0.0-2.0); Lymphocytes 76 % (24-44); Monocyte 5 % (0.0-12.0); Neutrophils 14 % (36.-66.); Platelet Estimate NORMAL (NORMAL); Total Cells Counted 100
[2017-08-21 13:00] LABS: ANISOCYTOSIS 2+; Poikilocytosis 1+; Polychromasia 1+
[2017-08-21 13:45] VITALS: BP 157/72; PULSE 64; O2SAT 92
== END 2017-08-21 13:50 | disposition short-term general hospital (02) ==
LOC: ED 11:27
DX: S06.5X0A Traumatic subdural hemorrhage without loss of consciousness, initial encounter (principal); F03.90 Unspecified dementia, unspecified severity, without behavioral disturbance, psychotic disturbance, mood disturbance, and anxiety; I50.9 Heart failure, unspecified; J45.909 Unspecified asthma, uncomplicated; K76.9 Liver disease, unspecified; K21.9 Gastro-esophageal reflux disease without esophagitis; Z85.51 Personal history of malignant neoplasm of bladder; F41.8 Other specified anxiety disorders; G72.9 Myopathy, unspecified; Z72.0 Tobacco use
CPT/HCPCS: 36000; 36415; 70450; 71045; 80053; 83880; 84484; 85025; 85610; 87040; 87631; 93005; 93041; 99285